=== PATIENT | female | born 1945 | race Caucasian/White ===

== ENCOUNTER 2016-12-23 08:14 | Outpatient (CLI) | payer MEDICARE, OTHER | END 2016-12-23 08:15 | disposition home or self-care (01) | DX: N28.9 Disorder of kidney and ureter, unspecified (principal); E78.5 Hyperlipidemia, unspecified; E03.9 Hypothyroidism, unspecified ==

== ENCOUNTER 2017-02-19 14:34 | Outpatient (CLI) | payer MEDICARE, OTHER ==
[2017-02-19] MEDS ORDERED: GADOBUTROL 7.5 MMOL/7.5 ML VIAL IVP ONE (15:56)
== END 2017-02-19 14:35 | disposition home or self-care (01) ==
DX: H53.9 Unspecified visual disturbance (principal); I10 Essential (primary) hypertension; J32.2 Chronic ethmoidal sinusitis; J32.0 Chronic maxillary sinusitis
CPT/HCPCS: 36415; 70543; 80048; A9585

== ENCOUNTER 2017-05-26 13:55 | Outpatient (CLI) | payer MEDICARE, OTHER ==
--- NOTE | 2017-05-27 13:19 | Mammography Report ---
DIGITAL SCREENING MAMMOGRAM: 05/26/2017 CLINICAL INDICATION: A 72-year-old nulliparous patient for screening. COMPARISON: 04/2014, 07/2012, 04/2011, 04/2010, 02/2009, 02/2008 TECHNIQUE: Routine CC and MLO projections were obtained of the breasts. FINDINGS: The breasts demonstrate scattered fibroglandular densities bilaterally. In the left likel y outer central breast, best seen on the oblique projection, there is a possible nodule. Further angelina luation with spot compression views and possible ultrasound is recommended. No mammographically susp icious findings are appreciated in the right breast. IMPRESSION: INCOMPLETE EXAMINATION. RECOMMENDATION: Additional evaluation of the left breast as above. BIRADS CATEGORY 0 - INCOMPLETE. STANDARD QUALIFYING STATEMENTS 1. This examination was reviewed with the aid of Computer-Aided Detection (CAD). 2. A negative or benign imaging report should not delay biopsy if clinically suspicious findings are present. Consider surgical consultation if warranted. More than 5% of cancers are not identified by i maging. 3. Dense breasts may obscure an underlying neoplasm. JOB #: [id number] EXT JOB #:[id number]
== END 2017-05-26 13:56 | disposition home or self-care (01) ==
LOC: DI.N 13:55
PROVIDERS: ATTEND Family Medicine
DX: Z12.31 Encounter for screening mammogram for malignant neoplasm of breast (principal); R92.8 Other abnormal and inconclusive findings on diagnostic imaging of breast
CPT/HCPCS: 77067

== ENCOUNTER 2017-06-07 13:39 | Outpatient (CLI) | payer MEDICARE, OTHER ==
--- NOTE | 2017-06-07 16:19 | Ultrasound Report ---
LEFT BREAST ULTRASOUND: 06/07/2017 CLINICAL INDICATION: Circumscribed nodule on mammogram. TECHNIQUE: Real-time scanning was performed with solar sales representative static images obtained. FINDINGS: Ultrasound of the left outer breast was performed. At the 3 o'clock position, 5 cm from t he nipple, there is a 0.5 x 0.4 x 0.3 cm simple cyst. No sonographically suspicious findings are dominic ntified. IMPRESSION: SIMPLE CYST, ACCOUNTING FOR THE MAMMOGRAPHIC ABNORMALITY. RECOMMENDATION: Routine annual screening unless otherwise clinically indicated. BIRADS CATEGORY 2 - BENIGN FINDINGS. JOB #: [id number] EXT JOB #:
--- NOTE | 2017-06-07 17:49 | Mammography Report ---
DIGITAL DIAGNOSTIC LEFT MAMMOGRAM: 06/07/2017 CLINICAL INDICATION: Possible nodule on screening. TECHNIQUE: Left true lateral and spot compression views. COMPARISON: 05/26/2017, 05/14/2014, 08/10/2012, 05/11/2011, 05/16/2010, 03/15/2009, 03/05/2008. The left breast again demonstrates scattered fibroglandular densities. The nodule in the left outer breast persists on additional compression, measuring 5 mm. No associated calcifications are seen. P karleease also refer to left breast ultrasound of the same day. IMPRESSION: BENIGN FINDINGS, WITH A SIMPLE CYST ON ULTRASOUND ACCOUNTING FOR THE MAMMOGRAPHIC ABNORM ALITY. RECOMMENDATION: ROUTINE ANNUAL SCREENING UNLESS OTHERWISE CLINICALLY INDICATED. BIRADS CATEGORY: 2, BENIGN FINDINGS. STANDARD QUALIFYING STATEMENTS 1. This examination was reviewed with the aid of Computed-Aided Detection (CAD). 2. A negative or benign imaging report should not delay biopsy if clinically suspicious findings are present. Consider surgical consultation if warranted. More than 5% of cancers are not identified b y imaging. 3. Dense breasts may obscure an underlying neoplasm. JOB #: [id number] EXT JOB #:[id number]
== END 2017-06-07 13:40 | disposition home or self-care (01) ==
LOC: DI 13:39
PROVIDERS: ATTEND Family Medicine
DX: N60.02 Solitary cyst of left breast (principal)
CPT/HCPCS: 76642; G0206

== ENCOUNTER 2017-07-19 09:50 | Outpatient (CLI) | payer MEDICARE, OTHER ==
[2017-07-19 12:37] LABS: BASOPHILS # (AUTO) 0.1 10^3/uL (0.0-0.1); EOSINOPHILS # (AUTO) 0.3 10^3/uL (0.0-0.7); EOSINOPHILS % (AUTO) 5.1 %; HCT - HEMATOCRIT 37.9 % (37.0-47.0); HGB - HEMOGLOBIN 12.6 g/dL (12.0-16.0); LYMPHOCYTES # (AUTO) 2.3 10^3/uL (1.5-3.5); LYMPHOCYTES % (AUTO) 34.8 %; MEAN CORPUSCULAR HEMOGLOBIN 28.7 pg (27.0-31.0); MEAN CORPUSCULAR HGB CONC 33.3 g/dL (32.0-36.0); MEAN CORPUSCULAR VOLUME 85.9 fL (81.0-99.0); MEAN PLATELET VOLUME 7.4 fL (7.9-10.8); MONOCYTES # (AUTO) 0.7 10^3/uL (0.0-1.0); MONOCYTES % (AUTO) 10.3 %; NEUTROPHILS # (AUTO) 3.3 10^3/uL (1.5-6.6); NEUTROPHILS % (AUTO) 48.8 %; RED BLOOD COUNT 4.41 10^6/uL (4.20-5.40); RED CELL DISTRIBUTION WIDTH 14.4 % (12.0-15.0); UNCORRECTED WHITE BLOOD COUNT 7.7 x10^3/uL; WHITE BLOOD COUNT 6.7 x10^3/uL (4.8-10.8)
[2017-07-19 13:09] LABS: ALBUMIN/GLOBULIN RATIO 1.1 (1.0-2.2); BILIRUBIN,TOTAL 0.4 mg/dL (0.2-1.0); BUN - BLOOD UREA NITROGEN 18 mg/dL (6-20); CALCIUM 9.5 mg/dL (8.5-10.3); CARBON DIOXIDE - CO2 28 mmol/L (21-32); CHLORIDE 102 mmol/L (101-111); CHOL/HDL RATIO 4.4 (<4.4); CHOLESTEROL 199 mg/dL; CREATININE 0.9 mg/dL (0.4-1.0); GFR - MDRD 61 (>89); GLUCOSE 88 mg/dL (70-100); HDL CHOLESTEROL 45 mg/dL; LDL/HDL RATIO 2.8 (<4.4); POTASSIUM 4.3 mmol/L (3.5-5.0); SODIUM 137 mmol/L (135-145); TOTAL PROTEIN 7.5 g/dL (6.7-8.2); TRIGLYCERIDES 147 mg/dL; VLDL CHOLESTEROL 29 mg/dL
[2017-07-19 13:31] LABS: PLATELET MORPHOLOGY PLATELET CLUMPING (NORMAL)
[2017-07-19 13:33] LABS: WBC MORPHOLOGY (MULTIPLE) NORMAL APPEARANCE (NORMAL)
== END 2017-07-19 09:51 | disposition home or self-care (01) ==
LOC: LAB.WCP 09:50
PROVIDERS: ATTEND Family Medicine
DX: I10 Essential (primary) hypertension (principal); E78.5 Hyperlipidemia, unspecified; E03.9 Hypothyroidism, unspecified
CPT/HCPCS: 36415; 80053; 80061; 84443; 85025

== ENCOUNTER 2017-09-03 16:31 | Outpatient (CLI) | payer MEDICARE, OTHER ==
--- NOTE | 2017-09-03 21:03 | MRI Report ---
EXAM: LEFT KNEE MRI WITHOUT CONTRAST EXAM DATE: 09/03/2017 04:45 PM. CLINICAL HISTORY: Left knee pain for 3 months. Medial pain. COMPARISON: 01/05/2013. TECHNIQUE: Multiplanar, multisequence T1-weighted and fluid-sensitive sequences of the knee without c ontrast. Other: None. FINDINGS: Bones: Small osteophytes in the intercondylar notch. No fracture or marrow edema.. Articular Cartilage: Grade 2-3 chondromalacia medial compartment. Grade 2 chondromalacia patellofemor al compartment. Grade 2 chondromalacia lateral compartment near intercondylar notch. Medial Meniscus: 1 cm horizontal cleavage tear meniscal body. Mild blunting free edge. Lateral Meniscus: 1 cm horizontal cleavage tear of the meniscal body. Cruciate Ligaments: The anterior and posterior cruciate ligaments are intact. Collateral Ligaments: Mild edema of the mid to distal MCL. No retraction. Lateral collateral ligament intact. Tendons: The quadriceps, patellar, semimembranosus, and popliteus tendons are unremarkable. Musculature: No edema or fatty atrophy. Other: Small joint effusion. Small popliteal fossa cyst No loose bodies. The medial and lateral reti nacula are intact. Mild subcutaneous edema. IMPRESSION: 1. 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 2. Small nondisplaced horizontal cleavage tears of the medial and lateral menisci. 3. Grade 1 MCL sprain. [facility] MUSCULOSKELETAL RADIOLOGY SECTION Referring Provider Line: [phone] SITE ID: [id number]
== END 2017-09-03 16:32 | disposition home or self-care (01) ==
LOC: DI 16:31
PROVIDERS: ATTEND Physician Assistant
DX: M17.0 Bilateral primary osteoarthritis of knee (principal); S83.282A Other tear of lateral meniscus, current injury, left knee, initial encounter; S83.242A Other tear of medial meniscus, current injury, left knee, initial encounter; M94.262 Chondromalacia, left knee; S83.412A Sprain of medial collateral ligament of left knee, initial encounter

== ENCOUNTER 2017-10-19 11:30 | Outpatient (CLI) | payer MEDICARE, OTHER | END 2017-10-19 11:31 | disposition home or self-care (01) | LOC: LAB.WCP 11:30 | PROVIDERS: ATTEND Family Medicine | DX: N39.0 Urinary tract infection, site not specified (principal) | CPT/HCPCS: 87077; 87086 ==

== ENCOUNTER 2018-02-01 08:00 | Outpatient (CLI) | payer MEDICARE, OTHER ==
[2018-02-01 19:25] LABS: CALCIUM 9.4 mg/dL (8.5-10.3)
== END 2018-02-01 08:01 | disposition home or self-care (01) ==
LOC: LAB.WCP 08:00
PROVIDERS: ATTEND Family Medicine
DX: D32.9 Benign neoplasm of meninges, unspecified (principal)
CPT/HCPCS: 36415; 80048

== ENCOUNTER 2018-02-11 13:36 | Outpatient (CLI) | payer MEDICARE, OTHER ==
[2018-02-11] MEDS ORDERED: GADOBUTROL 7.5 MMOL/7.5 ML VIAL ONE (13:39)
[2018-02-11] MEDS ORDERED: GADOBUTROL 7.5 MMOL/7.5 ML VIAL IVP ONE (14:29)
--- NOTE | 2018-02-11 16:11 | MRI Report ---
EXAM: MRI BRAIN WITHOUT AND WITH CONTRAST EXAM DATE: 02/11/2018 02:33 PM. CLINICAL HISTORY: Meningioma. COMPARISON: MRI of the brain and orbits 02/19/2017. MRI of the brain 09/27/2014. TECHNIQUE: Multiplanar, multisequence T1-weighted and fluid-sensitive MR sequences of the brain were performed. Sequences optimized for routine evaluation. Other: None. IV Contrast: 4 cc Gadavist. FINDINGS: Brain Volume: Normal for age. Parenchyma: No acute hemorrhage, mass, or infarct. Mild scattered foci of T2/FLAIR bright white matte r signal are seen in the cerebral hemispheres and brainstem. No cortical signal abnormality. No abnor mal enhancement. Ventricles/Cisterns: An extra-axial avidly enhancing dural based soft tissue mass is once again seen in the floor of the anterior cranial fossa. This is in the midline and slightly greater to the left o f midline at the junction of the planum sphenoidale and olfactory sulcus at the inferior falx. This m easures 7 x 9 x 9 mm (previously 7 x 8 x 8 mm). No hydrocephalus. No abnormal extra-axial fluid colle ction or hemorrhage. Orbits: Symmetric and unremarkable. Note is made of bilateral lens removal. Sella Turcica: The pituitary gland, cavernous sinuses, suprasellar cistern and optic chiasm are unrem arkable. IAC: Symmetric and unremarkable. Vasculature: Normal signal flow void is seen in the major arterial structures at the skull base. The dural sinuses are patent and enhance normally. Sinuses: Mild polypoid mucosal thickening is seen inferiorly in the maxillary antra. The mastoid air cells are clear. Bones: No focal pathologic appearing marrow signal changes. Other: None. IMPRESSION: 1. Small avidly enhancing extra-axial dural based mass seen in the midline floor of the anterior cran ial fossa consistent with meningioma. This measures 7 x 9 x 9 mm, not significantly changed. 2. No acute intracranial abnormality. 3. Mild white matter T2/FLAIR bright signal change noted in the cerebral hemispheres. This is nonspec ific but typically secondary to small vessel ischemic change. [facility] Referring Provider Line: [phone] SITE ID: [id number]
== END 2018-02-11 13:37 | disposition home or self-care (01) ==
LOC: DI 13:36
PROVIDERS: ATTEND Family Medicine
DX: D32.9 Benign neoplasm of meninges, unspecified (principal)
CPT/HCPCS: 70553; A9585

== ENCOUNTER 2018-05-23 08:00 | Outpatient (CLI) | END 2018-05-23 08:01 | disposition home or self-care (01) ==

== ENCOUNTER 2018-06-08 08:00 | Outpatient (CLI) | payer MEDICARE, OTHER ==
[2018-06-08 13:24] LABS: BASOPHILS % (AUTO) 0.8 %; EOSINOPHILS # (AUTO) 0.4 10^3/uL (0.0-0.7); EOSINOPHILS % (AUTO) 5.7 %; HGB - HEMOGLOBIN 13.2 g/dL (12.0-16.0); LYMPHOCYTES # (AUTO) 2.3 10^3/uL (1.5-3.5); LYMPHOCYTES % (AUTO) 34.2 %; MEAN CORPUSCULAR HEMOGLOBIN 28.6 pg (27.0-31.0); MEAN CORPUSCULAR HGB CONC 33.2 g/dL (32.0-36.0); MEAN CORPUSCULAR VOLUME 86.2 fL (81.0-99.0); MEAN PLATELET VOLUME 7.7 fL (7.9-10.8); MONOCYTES # (AUTO) 0.6 10^3/uL (0.0-1.0); MONOCYTES % (AUTO) 9.5 %; NEUTROPHILS # (AUTO) 3.3 10^3/uL (1.5-6.6); NEUTROPHILS % (AUTO) 49.8 %; RED BLOOD COUNT 4.63 10^6/uL (4.20-5.40); RED CELL DISTRIBUTION WIDTH 13.8 % (12.0-15.0); WHITE BLOOD COUNT 6.6 x10^3/uL (4.8-10.8)
[2018-06-08 14:04] LABS: PLATELET ESTIMATE, MANUAL NORMAL (130-450,000) (NORMAL); PLATELET MORPHOLOGY PLATELET CLUMPING (NORMAL); RBC MORPHOLOGY (MULTIPLE) NORMAL APPEARANCE (NORMAL)
== END 2018-06-08 08:01 | disposition home or self-care (01) ==
LOC: LAB.WCP 08:00
PROVIDERS: ATTEND Family Medicine
DX: I10 Essential (primary) hypertension (principal)
CPT/HCPCS: 36415; 85025

== ENCOUNTER 2018-08-08 09:45 | Outpatient (CLI) | payer MEDICARE, OTHER ==
[2018-08-08] MEDS ORDERED: IOPAMIDOL-300 50 ML VIAL ONE (10:24)
[2018-08-08] MEDS ORDERED: IOPAMIDOL-300 100 ML VIAL ONE (10:24)
[2018-08-08 10:25] LABS: CALCIUM 9.4 mg/dL (8.5-10.3)
[2018-08-08] MEDS ORDERED: IOPAMIDOL-300 50 ML VIAL PO ONE (11:35)
[2018-08-08] MEDS ORDERED: IOPAMIDOL-300 100 ML VIAL IVP ONE (11:35)
--- NOTE | 2018-08-08 11:56 | CT Report ---
Reason: ABDOMINAL PAIN,LEFT LOWER QUADRANT Procedure Date: 08/08/2018 Accession Number: [id number] / [id number] Procedure: CT - Abdomen/Pelvis W/ CPT Code: FULL RESULT: EXAM: CT ABDOMEN AND PELVIS EXAM DATE: 08/08/2018 11:31 AM. CLINICAL HISTORY: Left lower quadrant abdominal pain. COMPARISONS: None. TECHNIQUE: Routine helical CT imaging was performed through the abdomen and pelvis. IV contrast: ISOVUE 300 100mL. Enteric contrast: Yes. Reconstructions: Coronal and sagittal. In accordance with CT protocol optimization, one or more of the following dose reduction techniques were utilized for this exam: automated exposure control, adjustment of mA and/or KV based on patient size, or use of iterative reconstructive technique. FINDINGS: Lung Bases: Clear. Liver: Normal. No focal hepatic lesion. Gallbladder/Bile Ducts: Unremarkable. No visualized stones or biliary ductal dilatation. Spleen: Normal. Pancreas: Normal. Adrenal Glands: Normal. Kidneys and Ureters: 3.1 cm cortical cyst in the right upper pole. Several scattered subcentimeter round hypoattenuating foci elsewhere in the bilateral renal cortices are too small to definitively characterize but likely also represent cysts. No stones, hydronephrosis, or hydroureter. Peritoneal Cavity/Bowel: Diverticulosis in the mid transverse colon and in the sigmoid colon. No focal colon wall thickening or adjacent mesenteric fat stranding to suggest acute diverticulitis. No evidence for bowel obstruction or acute inflammatory process elsewhere. The appendix is not seen. No free fluid, pneumoperitoneum, or adenopathy. Pelvic Organs: Post hysterectomy. The bladder is within normal limits. Vasculature: Trace atherosclerotic calcifications within the aorta. Bones: Mild left convex curvature centered at L2-L3. Multilevel degenerative disk disease, most pronounced and moderate to severe at L1-L2. No acute bony abnormality. Other: Tiny fat-containing umbilical hernia. IMPRESSION: 1. No acute inflammatory or obstructive process identified to explain left lower quadrant abdominal pain. 2. Colonic diverticulosis without CT evidence for acute diverticulitis. [facility]
== END 2018-08-08 09:46 | disposition home or self-care (01) ==
LOC: LAB 09:45 → DI 09:46
PROVIDERS: ATTEND Family Medicine
DX: R10.32 Left lower quadrant pain (principal); K57.30 Diverticulosis of large intestine without perforation or abscess without bleeding
CPT/HCPCS: 36415; 74177; 80048; Q9967

== ENCOUNTER 2018-08-11 10:39 | Outpatient (CLI) | payer MEDICARE, OTHER ==
--- NOTE | 2018-08-11 15:03 | Ultrasound Report ---
Reason: LT BREAST CYST, PAIN Procedure Date: 08/11/2018 Accession Number: [id number] / [id number] Procedure: US - Breast Unilateral Limited CPT Code: FULL RESULT: EXAM: Breast bilateral diagnostic mammogram and left breast ultrasound DATE: 08/11/2018 11:39 AM CLINICAL HISTORY: LT BREAST CYST, PAIN TECHNIQUE: Bilateral MLO and CC breast views. Sonographic evaluation of the left breast 3:00. COMPARISON: Mammogram 05/26/2017 FINDINGS: No mass or other mammographic abnormality is seen at the area of concern. Left breast 3:00. No architectural distortion or concerning cluster of macrocalcifications. Sonographic evaluation of the left breast 3:00 position 5 cm from the nipple demonstrates a 4 mm simple appearing cyst, consistent with prior imaging. IMPRESSION: Essentially stable 4 mm simple-appearing left breast cyst. BI-RADS 2. Benign finding. Recommend annual screening mammography unless otherwise clinically indicated.
== END 2018-08-11 10:40 | disposition home or self-care (01) ==
LOC: DI 10:39
PROVIDERS: ATTEND Family Medicine
DX: N60.02 Solitary cyst of left breast (principal)
CPT/HCPCS: 76642; 77066

== ENCOUNTER 2018-08-26 12:41 | Outpatient (CLI) | payer MEDICARE, OTHER ==
--- NOTE | 2018-08-29 08:49 | Ultrasound Report ---
Reason: RENAL CYCSTS, BILATERAL Procedure Date: 08/26/2018 Accession Number: [id number] / [id number] Procedure: US - Retroperitoneal CPT Code: FULL RESULT: EXAM: RENAL ULTRASOUND EXAM DATE: 08/26/2018 01:37 PM. CLINICAL HISTORY: Renal cysts, bilateral. COMPARISON: None. TECHNIQUE: Real-time scanning was performed with static images obtained. FINDINGS: Right Kidney: 10.2 x 4.5 x 4.1 cm. 2.8 x 2.3 x 2.6 cm simple right upper renal cyst. No concerning features. No stones or hydronephrosis or mass. Left Kidney: 11.4 x 4.5 x 4.2 cm. Normal echotexture with no stones, contour-deforming masses, or hydronephrosis. Bladder: Bilateral jets seen. The prevoid bladder volume was 407.2 cc. The postvoid bladder volume was 14.3 cc. Other: None. IMPRESSION: 1. No renal mass, stones or hydronephrosis. 2. 2.8 cm simple right upper renal cyst. No concerning features. 3. Normal bladder. [facility]
== END 2018-08-26 12:42 | disposition home or self-care (01) ==
LOC: DI 12:41
PROVIDERS: ATTEND Family Medicine
DX: N28.1 Cyst of kidney, acquired (principal)
CPT/HCPCS: 76770

== ENCOUNTER 2018-09-30 11:02 | Outpatient (CLI) | payer MEDICARE, OTHER | END 2018-09-30 11:03 | disposition home or self-care (01) | LOC: DI 11:02 | PROVIDERS: ATTEND Specialist | DX: E78.5 Hyperlipidemia, unspecified (principal); I10 Essential (primary) hypertension; R06.02 Shortness of breath | CPT/HCPCS: 93306 ==

== ENCOUNTER 2018-10-28 11:49 | Outpatient (CLI) | payer MEDICARE, OTHER ==
--- NOTE | 2018-10-28 12:26 | XRAY Report ---
Reason: SHORT OF BREATH ON EXERTION Procedure Date: 10/28/2018 Accession Number: [id number] / [id number] Procedure: XRN - Chest 2 View X-Ray CPT Code: 07304 FULL RESULT: EXAM: CHEST RADIOGRAPHY EXAM DATE: 10/28/2018 12:08 PM. CLINICAL HISTORY: Short of breath on exertion. COMPARISON: 01/31/2015 4:54 PM. TECHNIQUE: 2 views. FINDINGS: Subtle increasing right middle lobe opacity. Lateral radiograph demonstrates an appearance most suggestive of atelectasis. No lobar consolidation. No sizable pleural effusion or pneumothorax. Mediastinum: Heart and mediastinal contours are unremarkable. Other: None. IMPRESSION: Subtle right middle lobe opacity, atelectasis versus sublobar airspace disease. [facility]
== END 2018-10-28 11:50 | disposition home or self-care (01) ==
LOC: DI.N 11:49
PROVIDERS: ATTEND Specialist
DX: R06.02 Shortness of breath (principal); R91.8 Other nonspecific abnormal finding of lung field
CPT/HCPCS: 71046

== ENCOUNTER 2018-11-14 12:50 | Outpatient (CLI) | payer MEDICARE, OTHER | END 2018-11-14 12:51 | disposition home or self-care (01) | LOC: SC 12:50 | PROVIDERS: ATTEND Internal Medicine Pulmonary Disease | DX: G47.33 Obstructive sleep apnea (adult) (pediatric) (principal) | CPT/HCPCS: 99203; G0463; 99212 ==

== ENCOUNTER 2018-12-16 16:30 | Outpatient (CLI) | payer MEDICARE, OTHER | END 2018-12-16 23:59 | disposition home or self-care (01) | LOC: LAB.R 16:30 | PROVIDERS: ATTEND Family Medicine | DX: R30.0 Dysuria (principal) | CPT/HCPCS: 87086 ==

== ENCOUNTER 2019-02-14 12:54 | Outpatient (CLI) | payer MEDICARE, OTHER ==
[2019-02-14] MEDS ORDERED: GADOBUTROL 7.5 MMOL/7.5 ML VIAL ONE (13:53)
[2019-02-14] MEDS ORDERED: GADOBUTROL 7.5 MMOL/7.5 ML VIAL IVP ONE ×2 (14:32)
--- NOTE | 2019-02-15 13:11 | MRI Report ---
Reason: BENIGN NEOPLASM OF CEREBRAL MENINGES Procedure Date: 02/14/2019 Accession Number: [id number] / [id number] Procedure: MRI - Brain W/WO CPT Code: FULL RESULT: MRI BRAIN WITHOUT AND WITH CONTRAST INDICATION: 73-year-old female. Benign neoplasm of cerebral meninges. Please assess in followup. TECHNIQUE: 1. T1 sagittal. 2. Fat saturated T2 coronal. 3. Axial T1 MP RAGE, FLAIR, T2, T2* and DWI. 4. 6 cc of IV Gadavist. T1 3D axial with sagittal and coronal re-formations. COMPARISON: 02/11/2018. FINDINGS: Again demonstrated is a robustly enhancing extra-axial mass lesion in the midline inferior anterior cranial fossa. On today's examination, it appears to measure about 11 mm maximal AP (image 66 of series 1001) by 10 mm maximal transverse by 8 mm maximal craniocaudad, slightly increased from about 9 x 9 x 8 mm on the previous examination. There is minor mass effect on adjacent brain. No additional enhancing extra-axial or intra-axial mass lesion is demonstrated. Again demonstrated is normal intravascular contrast enhancement in the dural venous sinuses and deep venous structures. Ventricular size is normal and stable. A mild amount of white matter disease is again identified in the supratentorial brain, similar to prior study. A small T2 hyperintensity is again seen in the midline mid to lower bryan. In addition, there is hazy T2 hyperintensity bilaterally in the upper bryan bilaterally, essentially unchanged. Signal intensity of cortex and white matter is otherwise normal. Flow voids are demonstrated in the main intracranial arteries. No abnormal diffusion restriction is demonstrated. No evidence of acute or chronic hemorrhage on T2*GRE sequence. Limited evaluation of the orbits reveals no gross pathology. Changes of previous cataract surgery are noted bilaterally. Mucosal thickening is seen in multiple ethmoid air cells. There is mucosal thickening in bilateral maxillary sinuses with a mucous retention cyst in the alveolar recess of the right maxillary sinus. The paranasal sinuses are otherwise clear. No mastoid or middle ear effusion. Marrow signal intensity in the regional skeletal structures is unremarkable. IMPRESSION: 1. Again demonstrated is a small, robustly enhancing intra-axial mass lesion in the midline floor of the anterior cranial fossa as described, most likely a meningioma. There appears to have been very mild interval increase in AP and transverse dimensions when compared to study from last January suggesting a minor interval growth. 2. Imaging of the brain is otherwise stable.
== END 2019-02-14 12:55 | disposition home or self-care (01) ==
LOC: DI 12:54
PROVIDERS: ATTEND Family Medicine
DX: D32.0 Benign neoplasm of cerebral meninges (principal)
CPT/HCPCS: 70553; A9585

== ENCOUNTER 2019-04-04 12:47 | Outpatient (CLI) | payer MEDICARE, OTHER | END 2019-04-04 12:48 | disposition home or self-care (01) | LOC: SC 12:47 | PROVIDERS: ATTEND Nurse Practitioner Family | DX: G47.33 Obstructive sleep apnea (adult) (pediatric) (principal) | CPT/HCPCS: 99215; G0463; 99212 ==

== ENCOUNTER 2019-06-28 09:45 | Outpatient (CLI) | payer MEDICARE, OTHER ==
[2019-06-28 12:48] LABS: BASOPHILS % (AUTO) 0.5 %; EOSINOPHILS # (AUTO) 0.3 10^3/uL (0.0-0.7); EOSINOPHILS % (AUTO) 4.7 %; HGB - HEMOGLOBIN 13.7 g/dL (12.0-16.0); LYMPHOCYTES # (AUTO) 1.7 10^3/uL (1.5-3.5); MEAN CORPUSCULAR HEMOGLOBIN 27.6 pg (27.0-31.0); MEAN CORPUSCULAR HGB CONC 31.1 g/dL (32.0-36.0); MEAN CORPUSCULAR VOLUME 88.9 fL (81.0-99.0); MEAN PLATELET VOLUME 10.8 fL (7.9-10.8); MONOCYTES # (AUTO) 0.6 10^3/uL (0.0-1.0); MONOCYTES % (AUTO) 10.1 %; NEUTROPHILS # (AUTO) 3.2 10^3/uL (1.5-6.6); NEUTROPHILS % (AUTO) 55.5 %; PLT - PLATELET COUNT 65 10^3/uL (130-450); RED BLOOD COUNT 4.96 10^6/uL (4.20-5.40); WHITE BLOOD COUNT 5.8 x10^3/uL (4.8-10.8)
[2019-06-28 13:18] LABS: ALBUMIN 3.9 g/dL (3.2-5.5); ALKALINE PHOSPHATASE 95 IU/L (42-121); ALT ALANINE AMINOTRANSFERASE 23 IU/L (10-60); AST ASPARTATE AMINOTRANSFERASE 25 IU/L (10-42); BILIRUBIN,TOTAL 0.7 mg/dL (0.2-1.0); BUN - BLOOD UREA NITROGEN 24 mg/dL (6-20); CALCIUM 9.6 mg/dL (8.5-10.3); CARBON DIOXIDE - CO2 27 mmol/L (21-32); CHLORIDE 102 mmol/L (101-111); CHOL/HDL RATIO 5.2 (<4.4); CHOLESTEROL 219 mg/dL; CREATININE 0.9 mg/dL (0.4-1.0); GFR - MDRD 61 (>89); GLUCOSE 93 mg/dL (70-100); HDL CHOLESTEROL 42 mg/dL; LDL CHOLESTEROL,CALCULATED 132 mg/dL; LDL/HDL RATIO 3.1 (<4.4); SODIUM 139 mmol/L (135-145); TOTAL PROTEIN 7.7 g/dL (6.7-8.2); VLDL CHOLESTEROL 45 mg/dL
[2019-06-28 13:39] LABS: HB2 TOTAL 14.3 g/dL; HEMOGLOBIN A1C 0.57 g/dL; HEMOGLOBIN A1C % 5.8 % (4.6-6.2)
== END 2019-06-28 23:59 | disposition home or self-care (01) ==
LOC: LAB.WCP 09:45
PROVIDERS: ATTEND Family Medicine
DX: E78.5 Hyperlipidemia, unspecified (principal); E03.9 Hypothyroidism, unspecified; R79.89 Other specified abnormal findings of blood chemistry; R73.01 Impaired fasting glucose; M85.89 Other specified disorders of bone density and structure, multiple sites
CPT/HCPCS: 36415; 80053; 80061; 83036; 83721; 84443; 85025

== ENCOUNTER 2019-08-29 11:11 | Outpatient (CLI) | payer MEDICARE, OTHER ==
[2019-08-29 12:28] VITALS: BP 112/70
--- NOTE | 2019-08-29 12:28 | SLEEP CARE CONSULTATION ---
Information from patient questionnaire entered by Kirsten Carvalho. I have reviewed and concur with the information entered by Kirsten Carvalho. This document represents the service I personally performed and the decisions made by me, Carli Desouza, RN, MSN, PIGMENT [employer]. History of Present Illness Previous diagnosis: Mild, Obstructive Sleep Apnea-Hypopnea Syndrome AHI: 9.2 Reason for CPAP/BiPAP follow up: three month (and pressure change) Equipment type: CPAP Equipment obtained from: [facility] (having difficulty getting supplies despite statements will be ready and rude treatment by CPAP staff on phone.) Mask style: Nasal (Dreamwear) Mask brand: Respironics Backup mask available: No (Keep current mask when replaced as a spare. ) Last cushion change: last night Prior sleep studies: Yes Year and Where: 2006 [facility], [place] CPAP Compliance Data - Data Reviewed with Patient Average duration of nightly device use: 7h 43m Compliance rate %: 97.8 Current pressure setting (cmH2O): 9 Humidity settin Heated hose settin Average residual AHI: 1.7 Subjective Patient concerns: reports: mask leak noise (2-3 times a night from mask dislodging ), nasal congestion (daily and when increased will open mouth to breath), dry mouth, nose, throat (nightly, mainly nose and throat), epistaxis (she notes dried red secretions when blows nose daily), other (sinus frontal headache more frequently lately. ). denies: aerophagia, mask discomfort, air blowing in eyes, condensation in mask/hose Initial [place] Sleepiness Scale score: 6 Current [place] Sleepiness Scale score: 10 Allergies and Home Medications Known drug allergies: Yes (multiple as noted below) Home medication list reviewed: Yes Allergy and home medication list: Medication Name (generic/name brand) Strength & Dosage Lipitor (Atorvastatin Calcium) 20mg tab one daily at bedtime Levoxyl (Levothyroxine Sodium) 88mcg tab one daily Wbhex-S-Odlbp 0.1% External Gel Apply to area twice daily Patanol 0.1% Ophthalmic Solution One drop each eye twice daily as needed Buspirone HCL 15mg tab two twice daily ProAir HFA 108 (90 base) mcg/act aerosol Two puffs up to q4hrs as needed Advair Diskus 100-50 mcg/dose aerosol One inhalation twice daily Lisinopril 2.5mg tab daily Zyrtec Allergy 10mg tab one daily Aspirin EC 81mg tab delayed release one daily Allergy List Penicillin G Potassium Sulfa Iodine IVP Dye Cocaine HCL Codeine Erythromycin Shellfish Physical Exam Blood Pressure: 112/70 Cuff size: long Heart Rate: 72 O2 Saturation: 96 Weight: 158 lb Weight change since last visit: lost 10 pounds on purpose Nasal exam: positive: erythema, excoriation (septum mild) Impression and Plan 1. Obstructive Sleep Apnea-Hypopnea Syndrome, mild, with good treatment compliance and good apnea control. On CPAP therapy, the patient has better sleep quality and is more rested overall. For nasal dryness and scant blood on tissue when blows nose, I showed her on a sample device and her compliance report that she had increased hose to 5 and humindity to 1 instead of opposite as advised. Written instructions given to now try the heated off unless condensation and the humidity at 3 and adjust as needed. In addition, I will give her some more samples of Andrea EAse nasal cream as it seemed to help. However, due to her busy schedule she was not able to use 4 times daily. Thus she is advised to try 2 times a day for 7-10 days to allow healing and then as needed. She may benefit from daily use thereafter before CPAP use. If continued frontal headache after humidity adjusted, she is advised to follow up with PCP and agreed with plan. To prevent mask dislodging in her sleep nightly, I will order the new headgear attachment to reduce this occurrence. For her supply concerns, I wrote a prescription to update supplies. There is no recent supply requisition from [facility] signed since 2016. This could be part of patient problem in getting supplies but [facility] just needs to send us this for signature as patient has been seen as needed for follow up. I will start process with a prescription to update supplies. She would like to transfer to new [facility] but generally a patient needs to wait until the device is paid for by insurance. Thus I will have my missionary coordinator check out. A [facility] prescription will also have to be written. Patient advised to contact this office if any further problems. She is on way to [facility] now to try to speak to international sourcing manager about her concerns with supplies and staff behaviour on phone. Patient's apnea severity and rationale for treatment to reduce apnea, improve sleep quality and reduce cardiovascular and cerebrovascular events was reviewed. I also reviewed the benefit of consistent device use of CPAP for hypertension, gastric reflux, depression/anxiety, migraines. 4 * Continue CPAP pressure at 9 cmH2O * Implement measures to reduce nasal dryness * Headgear attachment * Update supplies * Contact this office if further supply concerns * Notify me if snoring with mask or feeling that the pressure is too much or too little * Return for follow up in 1 year , or sooner if concerns arise I spent 100% of this 35 minute visit face to face with the patient with greater than 50% of this was spent time counseling the patient and coordination of care.
== END 2019-08-29 11:12 | disposition home or self-care (01) ==
LOC: SC 11:11
PROVIDERS: ATTEND Nurse Practitioner Family
DX: G47.33 Obstructive sleep apnea (adult) (pediatric) (principal)
CPT/HCPCS: 99214; G0463; 99212

== ENCOUNTER 2019-09-05 15:48 | Outpatient (CLI) | payer MEDICARE, OTHER ==
--- NOTE | 2019-09-06 12:09 | Mammography Report ---
Reason: ROUTINE MAMMO Procedure Date: 09/05/2019 Accession Number: [id number] / [id number] Procedure: [facility] - Screening Mammo w/Jake CPT Code: FULL RESULT: EXAM: Screening Mammo w/Jake DATE: 09/05/2019 4:39 PM CLINICAL HISTORY: Routine screening. No reported personal or family history of breast cancer. TECHNIQUE: (B) - Bilateral CC and MLO views were obtained. COMPARISON: 08/11/2018 through 05/16/2010. PARENCHYMAL PATTERN: (A) - The breasts demonstrate scattered fibroglandular densities bilaterally. FINDINGS: Bilateral breasts: There are multiple bilateral, similar appearing, round and oval, circumscribed margin benign-appearing masses, stable. There are no suspicious masses, calcifications, or areas of distortion. IMPRESSION: Benign findings. BI-RADS category 2. RECOMMENDATION: (ANNUAL) - Recommend routine annual screening mammography. BI-RADS CATEGORY: (2) - Benign Findings. STANDARD QUALIFYING STATEMENTS: 1. This examination was not reviewed with the aid of Computer-Aided Detection (CAD). 2. A negative or benign imaging report should not preclude biopsy if clinically suspicious findings are present. 3. Dense breasts may obscure an underlying neoplasm. 4. This examination was reviewed with the aid of 3D breast imaging (tomosynthesis).
== END 2019-09-05 15:49 | disposition home or self-care (01) ==
LOC: DI 15:48
DX: Z12.31 Encounter for screening mammogram for malignant neoplasm of breast (principal)
CPT/HCPCS: 77063; 77067

== ENCOUNTER 2020-05-07 15:01 | Outpatient (CLI) | payer MEDICARE, OTHER ==
[2020-05-07 15:30] LABS: BASOPHILS % (AUTO) 0.5 %; EOSINOPHILS # (AUTO) 0.4 10^3/uL (0.0-0.7); EOSINOPHILS % (AUTO) 5.4 %; HGB - HEMOGLOBIN 13.8 g/dL (12.0-16.0); LYMPHOCYTES # (AUTO) 2.3 10^3/uL (1.5-3.5); LYMPHOCYTES % (AUTO) 30.3 %; MEAN CORPUSCULAR HEMOGLOBIN 28.3 pg (27.0-31.0); MEAN CORPUSCULAR HGB CONC 31.4 g/dL (32.0-36.0); MEAN CORPUSCULAR VOLUME 90.1 fL (81.0-99.0); MEAN PLATELET VOLUME 10.2 fL (7.9-10.8); MONOCYTES # (AUTO) 0.8 10^3/uL (0.0-1.0); MONOCYTES % (AUTO) 10.2 %; NEUTROPHILS % (AUTO) 53.3 %; PLT - PLATELET COUNT 242 10^3/uL (130-450); RED BLOOD COUNT 4.87 10^6/uL (4.20-5.40); RED CELL DISTRIBUTION WIDTH 13.3 % (12.0-15.0); WHITE BLOOD COUNT 7.4 x10^3/uL (4.8-10.8)
[2020-05-07 15:47] LABS: ALBUMIN 4.1 g/dL (3.2-5.5); ALBUMIN/GLOBULIN RATIO 1.1 (1.0-2.2); BILIRUBIN,TOTAL 0.3 mg/dL (0.2-1.0); CALCIUM 9.3 mg/dL (8.5-10.3); CREATININE 0.9 mg/dL (0.4-1.0); TOTAL PROTEIN 7.8 g/dL (6.7-8.2)
--- NOTE | 2020-05-07 16:09 | CT Report ---
Reason: RIGHT FLANK PAIN Procedure Date: 05/07/2020 Accession Number: [id number] / [id number] Procedure: CT - Abdomen/Pelvis WO CPT Code: Final Report FULL RESULT: PROCEDURE: Abdomen/Pelvis WO INDICATIONS: RIGHT FLANK PAIN TECHNIQUE: Noncontrast 5 mm thick sections acquired from the diaphragms to the symphysis. 5 mm coronal and sagittal reformats were then performed. For radiation dose reduction, the following was used: automated exposure control, adjustment of mA and/or kV according to patient size. COMPARISON: CT of abdomen and pelvis dated 08/08/2018. FINDINGS: Image quality: Excellent. ABDOMEN: Lung bases: Lung bases are clear. Heart size is normal. Solid organs: Liver and spleen are normal in size. Gallbladder is within normal limits Pancreas is normal in contours. No adrenal nodules. Kidneys are normal in size, without hydronephrosis or nephrolithiasis. Bilateral renal cysts are seen, measures up to 3.1 x 3.5 cm in size in upper pole of right kidney unchanged from previous study. There is also a 9 mm hyperdense and exophytic area involving posterior cortex of lower pole right kidney which was shown on previous contrast enhanced study to represent a small cyst in this area and may represent a hemorrhagic cyst or hyperdense cyst. Peritoneum and bowel: Unenhanced bowel loops demonstrate normal wall thickness and caliber. No free fluid or air. Sigmoid diverticulosis is seen, no CT evidence of acute diverticulitis. No signs of acute appendicitis. Nodes and vessels: No retroperitoneal or mesenteric adenopathy by size criteria. Aorta and inferior vena cava are normal in caliber. Miscellaneous: Small focal hernia is seen containing fat only. Separate skin marker is placed over the right lateral abdomen below the lower edge of liver. No gross abnormality is noted in adjacent right abdominal wall. PELVIS: Genitourinary: Bladder wall thickness is normal. Miscellaneous: No inguinal hernias or adenopathy. Bones: No suspicious bony lesions. Chronic anterior wedge compression deformity at T12 level is seen unchanged from prior study. No acute vertebral body compression fractures. IMPRESSION: 1. No renal stones or hydronephrosis. Suggestion of bilateral renal cysts including possible 9 mm hyperdense cyst or hemorrhagic cyst in lower pole of right kidney grossly unchanged from 2018 study. 2. No bowel obstruction. No free fluid or free air. No evidence of acute appendicitis or diverticulitis. 3. Small umbilical hernia containing fat only. No soft tissue or muscle abnormality is seen in right lateral abdominal wall at patient's reported area of pain. Reviewed by: Markus Hernandez MD on 05/07/2020 4:07 PM PDT Approved by: Markus Hernandez MD on 05/07/2020 4:07 PM PDT Station ID: [id number]
== END 2020-05-07 15:02 | disposition home or self-care (01) ==
LOC: DI 15:01
PROVIDERS: ATTEND Family Medicine
DX: R10.9 Unspecified abdominal pain (principal); K42.9 Umbilical hernia without obstruction or gangrene
CPT/HCPCS: 36415; 74176; 80053; 83690; 85025

== ENCOUNTER 2020-08-02 02:39 | Emergency (ER) | payer MEDICARE, OTHER ==
--- NOTE | 2020-08-02 02:55 | ED Physician Documentation ---
PD HPI HEADACHE - Stated complaint Stated Complaint: LUBIN/VOMITING - Chief complaint Chief Complaint: General - History obtained from History obtained from: Patient - History of Present Illness Timing - onset: Enter time (18:00) Timing - details: Gradual onset Pain level now: 10 Worst headache ever?: No: Worst headache ever? Location: Right Improved by: Dark room Worsened by: Light Similar symptoms before: Diagnosis (migraine headache) Recently seen: Not recently seen - Additional information Additional information: c/o right-sided headache since 6 PM, c/w her long history of migraine headaches. she is usually able to get adequate symptom control with excedrin and rest but this was ineffective and thus comes to ED with headache, n/v. has not been seen in ED for headache in 5 years. Review of Systems Constitutional: reports: Reviewed and negative Eyes: reports: Photophobia. denies: Loss of vision, Decreased vision Ears: reports: Reviewed and negative Nose: reports: Reviewed and negative GI: reports: Nausea, Vomiting. denies: Abdominal Pain Neurologic: reports: Headache. 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 - Present Medications Home Medications: Ambulatory Orders Medication Instructions Recorded Confirmed Buspirone HCl 15 mg PO BID 08/13/14 08/31/18 Cetirizine HCl [Zyrtec] 10 mg PO DAILY 08/13/14 08/31/18 Aripiprazole [Abilify] 1 tab PO DAILY 08/31/18 08/31/18 Atorvastatin [Lipitor] 1 tab PO DAILY 08/31/18 08/31/18 Desvenlafaxine Succinate [Pristiq] 1 tab PO DAILY 08/31/18 08/31/18 Levothyroxine Sodium [Synthroid] 1 tab PO DAILY 08/31/18 08/31/18 lisinopriL [Lisinopril] 1 tab PO DAILY 08/31/18 08/31/18 Ondansetron Odt [Zofran] 4 mg TL Q6H PRN #10 tablet 08/02/20 - Allergies Allergies/Adverse Reactions: Allergies Allergy/AdvReac Type Severity Reaction Status Date / Time codeine Allergy Hallucinati Verified 08/02/20 02:48 ons cocaine AdvReac Unknown Verified 08/02/20 02:48 - Social History Does the pt smoke?: No Smoking Status: Never smoker Does the pt drink ETOH?: No Does the pt have substance abuse?: No - Immunizations Immunizations are current?: Yes - POLST Patient has POLST: No PD ED PE NORMAL - Vitals Vital signs reviewed: Yes - General General: Alert and oriented X 3, Well developed/nourished, Other (appears uncomfortable, lights off for patient comfort, has washcloth over eyes) - HEENT HEENT: PERRL, EOMI, Moist mucous membranes - Neck Neck: Supple, no meningeal sign - Neuro Neuro: Alert and oriented X 3, 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 Departure - Departure Disposition: 01 Home, Self Care Clinical Impression: Migraine Qualifiers: Migraine type: with aura Status migrainosus presence: without status migrainosus Intractability: not intractable Qualified Code(s): G43.109 - Migraine with aura, not intractable, without status migrainosus Condition: Good Instructions: ED Headache Migraine Follow-Up: Jose G Gasca DO [Primary Care Provider] - Prescriptions: Ondansetron Odt [Zofran] 4 mg TL Q6H PRN #10 tablet PRN Reason: Nausea / Vomiting Discharge Date/Time: 08/02/20 04:17
[2020-08-02] MEDS ORDERED: SODIUM CHLORIDE 0.9% 1,000 ML IV STA (03:15)
[2020-08-02] MEDS ORDERED: ONDANSETRON 4 MG/2 ML VIAL IVP STA (03:19)
[2020-08-02] MEDS ORDERED: KETOROLAC 30 MG/ML VIAL IVP STA (03:19)
[2020-08-02 04:18] VITALS: BP 126/76
== END 2020-08-02 04:17 | disposition home or self-care (01) ==
LOC: ED 02:39
DX: G43.109 Migraine with aura, not intractable, without status migrainosus (principal); I10 Essential (primary) hypertension
CPT/HCPCS: 36415; 96361; 96374; 99284

== ENCOUNTER 2020-08-03 16:08 | Emergency (ER) | payer MEDICARE, OTHER ==
[2020-08-03] MEDS ORDERED: BUTALB/ACETAM/CAFF 50/325/40MG TABLET PO STA (17:10)
--- NOTE | 2020-08-03 17:12 | ED Physician Documentation ---
History of Present Illness - Stated complaint Stated Complaint: MIGRAINE - Chief complaint Chief Complaint: Neuro - History obtained from History obtained from: Patient - History of Present Illness Timing: Today Pain level max: 0 Pain level now: 0 - Additonal information Additional information: 75-year-old female presents to the emergency department with a right-sided headache for the past 3 to 4 days. Was seen here yesterday for same. [place] better after Toradol, went home and slept. She states that she thinks that the headache is from yellow onions on a hamburger. She went back to the hamburger place yesterday and ate another hamburger and now has a recurrent headache. States she has had headaches similar to this for years. No fevers. No chills. Nothing makes it better or worse. She has a history of a meningioma as well. No focal neurological deficits. No numbness or tingling. Took Tylenol this morning without relief. 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 - Present Medications Home Medications: Ambulatory Orders Medication Instructions Recorded Confirmed Buspirone HCl 15 mg PO BID 08/13/14 08/31/18 Cetirizine HCl [Zyrtec] 10 mg PO DAILY 08/13/14 08/31/18 Aripiprazole [Abilify] 1 tab PO DAILY 08/31/18 08/31/18 Atorvastatin [Lipitor] 1 tab PO DAILY 08/31/18 08/31/18 Desvenlafaxine Succinate [Pristiq] 1 tab PO DAILY 08/31/18 08/31/18 Levothyroxine Sodium [Synthroid] 1 tab PO DAILY 08/31/18 08/31/18 lisinopriL [Lisinopril] 1 tab PO DAILY 08/31/18 08/31/18 Ondansetron Odt [Zofran] 4 mg TL Q6H PRN #10 tablet 08/02/20 Butalb/Acetaminophen/Caffeine 1 cap PO Q6H PRN #10 capsule 08/03/20 [Fioricet 50-300-40 mg Capsule] Cephalexin [Keflex] 500 mg PO Q6H #20 capsule 08/03/20 Ondansetron Odt [Zofran] 4 mg TL Q6H PRN #10 tablet 08/03/20 - Allergies Allergies/Adverse Reactions: Allergies Allergy/AdvReac Type Severity Reaction Status Date / Time codeine Allergy Hallucinati Verified 08/03/20 16:39 ons cocaine AdvReac Unknown Verified 08/03/20 16:39 - Social History Does the pt smoke?: No Smoking Status: Never smoker Does the pt drink ETOH?: No Does the pt have substance abuse?: No - Immunizations Immunizations are current?: Yes - POLST Patient has POLST: No PD ED PE NORMAL - Vitals Vital signs reviewed: Yes - General General: Alert and oriented X 3, No acute distress - HEENT HEENT: PERRL, EOMI, Ears normal, Moist mucous membranes, Pharynx benign, Other (no temporal artery tenderness.) - Neck Neck: Supple, no meningeal sign - Cardiac Cardiac: RRR, Strong equal pulses - Respiratory Respiratory: No respiratory distress, Clear bilaterally - Abdomen Abdomen: Soft, Non tender, Non distended - Back Back: No spinal TTP - Derm Derm: Warm and dry - Extremities Extremities: No edema - Neuro Neuro: Alert and oriented X 3, 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 garment 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, No motor deficit, No sensory deficit, Normal speech Eye Opening: Spontaneous Motor: Obeys Commands Verbal: Oriented GCS Score: 15 - Psych Psych: Normal mood, Normal affect Results - Vitals Vitals: Vital Signs - 24 hr 08/03/20 08/03/20 08/03/20 16:35 17:39 18:16 Temperature 36.2 C L 37.0 C 37.0 C Heart Rate 76 69 73 Respiratory 13 12 12 Rate Blood Pressure 191/80 H 174/83 H 165/93 H O2 Saturation 99 98 100 08/03/20 18:57 Temperature 36.7 C Heart Rate 71 Respiratory 12 Rate Blood Pressure 161/74 H O2 Saturation 98 Oxygen O2 Source Room air - Labs Labs: Laboratory Tests 08/03/20 08/03/20 08/03/20 17:00 17:00 17:00 WBC 6.8 RBC 4.99 Hgb 14.0 Hct 44.0 MCV 88.2 MCH 28.1 MCHC 31.8 L RDW 13.3 Plt Count 156 MPV 10.8 Neut # (Auto) 4.2 Lymph # (Auto) 1.7 [place] # (Auto) 0.6 Eos # (Auto) 0.2 Baso # (Auto) 0.0 Absolute Nucleated RBC 0.00 Nucleated RBC % 0.0 ESR 29 Sodium 138 Potassium 3.8 Chloride 99 L Carbon Dioxide 24 Anion Gap 15.0 H BUN 18 Creatinine 0.8 Estimated GFR (MDRD) 70 L Glucose 103 H Calcium 9.2 Total Bilirubin 0.6 AST 21 ALT 22 Alkaline Phosphatase 95 C-Reactive Protein < 1.0 Total Protein 7.7 Albumin 3.9 Globulin 3.8 Albumin/Globulin Ratio 1.0 Lipase 41 Urine Color Urine Clarity Urine pH Ur Specific [place] Urine Protein Urine Glucose (UA) Urine Ketones Urine Occult Blood Urine Nitrite Urine Bilirubin Urine Urobilinogen Ur Leukocyte Esterase Urine RBC Urine WBC Urine WBC Clumps Ur Squamous Epith Cells Urine Bacteria Ur Microscopic Review Urine Culture Comments 08/03/20 18:30 WBC RBC Hgb Hct MCV MCH MCHC RDW Plt Count MPV Neut # (Auto) Lymph # (Auto) [place] # (Auto) Eos # (Auto) Baso # (Auto) Absolute Nucleated RBC Nucleated RBC % ESR Sodium Potassium Chloride Carbon Dioxide Anion Gap BUN Creatinine Estimated GFR (MDRD) Glucose Calcium Total Bilirubin AST ALT Alkaline Phosphatase C-Reactive Protein Total Protein Albumin Globulin Albumin/Globulin Ratio Lipase Urine Color YELLOW Urine Clarity HAZY Urine pH 6.0 Ur Specific [place] 1.025 Urine Protein NEGATIVE Urine Glucose (UA) NEGATIVE Urine Ketones 15 H Urine Occult Blood SMALL H Urine Nitrite POSITIVE H Urine Bilirubin NEGATIVE Urine Urobilinogen 0.2 (NORMAL) Ur Leukocyte Esterase SMALL H Urine RBC 11-25 H Urine WBC >25 H Urine WBC Clumps PRESENT Ur Squamous Epith Cells RARE Squamous Urine Bacteria Many H Ur Microscopic Review INDICATED Urine Culture Comments INDICATED - Rads (name of study) head cT Radiology: Prelim report reviewed, EMP read contemporaneously, See rad report (No acute abnormality) PD MEDICAL DECISION MAKING - ED course Complexity details: reviewed old records, reviewed results, re-evaluated patient, considered differential, d/w patient, d/w family ED course: Patient is well-appearing, nontoxic. Afebrile. No evidence of subarachnoid hemorrhage. Headache resolved with Fioricet. We will prescribe this for home as well. Upon discharging the patient, she complained of urinary symptoms as well, therefore UA was obtained and found to have UTI. Will treat this as well. No evidence of sepsis. Patient counseled regarding signs and symptoms for wh ich I believe and urgent re-evaluation would be necessary. Patient with good understanding of and agreement to plan and is comfortable going home at this time This document was made in part using voice recognition software. While efforts are made to proofread this document, sound alike and grammatical errors may occur. Departure - Departure Disposition: Home, Self Care Clinical Impression: Headache UTI (urinary tract infection) Qualifiers: Urinary tract infection type: acute cystitis Hematuria presence: without hematuria Qualified Code(s): N30.00 - Acute cystitis without hematuria Condition: Good Instructions: ED Cephalgia Unspecified, ED UTI Cystitis Female Follow-Up: your,doctor in 3 days [Other] Prescriptions: Butalb/Acetaminophen/Caffeine [Fioricet 50-300-40 mg Capsule] 1 cap PO Q6H PRN #10 capsule PRN Reason: headache Cephalexin [Keflex] 500 mg PO Q6H #20 capsule Ondansetron Odt [Zofran] 4 mg TL Q6H PRN #10 tablet PRN Reason: Nausea / Vomiting Comments: Go home and rest. Return if you worsen. Follow-up with your doctor for further care. There are no acute findings on your head CT or laboratory testing today. Discharge Date/Time: 08/03/20 19:28
[2020-08-03 17:13] LABS: BASOPHILS % (AUTO) 0.6 %; EOSINOPHILS # (AUTO) 0.2 10^3/uL (0.0-0.7); EOSINOPHILS % (AUTO) 3.4 %; LYMPHOCYTES # (AUTO) 1.7 10^3/uL (1.5-3.5); LYMPHOCYTES % (AUTO) 25.6 %; MEAN CORPUSCULAR HEMOGLOBIN 28.1 pg (27.0-31.0); MEAN CORPUSCULAR HGB CONC 31.8 g/dL (32.0-36.0); MEAN CORPUSCULAR VOLUME 88.2 fL (81.0-99.0); MEAN PLATELET VOLUME 10.8 fL (7.9-10.8); MONOCYTES # (AUTO) 0.6 10^3/uL (0.0-1.0); NEUTROPHILS # (AUTO) 4.2 10^3/uL (1.5-6.6); PLT - PLATELET COUNT 156 10^3/uL (130-450); RED BLOOD COUNT 4.99 10^6/uL (4.20-5.40); RED CELL DISTRIBUTION WIDTH 13.3 % (12.0-15.0); WHITE BLOOD COUNT 6.8 x10^3/uL (4.8-10.8)
[2020-08-03 17:29] LABS: ALBUMIN 3.9 g/dL (3.2-5.5); ALKALINE PHOSPHATASE 95 IU/L (42-121); ALT ALANINE AMINOTRANSFERASE 22 IU/L (10-60); AST ASPARTATE AMINOTRANSFERASE 21 IU/L (10-42); BILIRUBIN,TOTAL 0.6 mg/dL (0.2-1.0); BUN - BLOOD UREA NITROGEN 18 mg/dL (6-20); CALCIUM 9.2 mg/dL (8.5-10.3); CARBON DIOXIDE - CO2 24 mmol/L (21-32); CHLORIDE 99 mmol/L (101-111); CREATININE 0.8 mg/dL (0.4-1.0); GLUCOSE 103 mg/dL (70-100); LIPASE 41 U/L (22-51); SODIUM 138 mmol/L (135-145); TOTAL PROTEIN 7.7 g/dL (6.7-8.2)
--- NOTE | 2020-08-03 17:29 | CT Report ---
PROCEDURE: HEAD WO INDICATIONS: headache x 5 days TECHNIQUE: Noncontrast 4.5 mm thick angled axial sections acquired from the foramen magnum to the vertex. For r adiation dose reduction, the following was used: automated exposure control, adjustment of mA and/or kV according to patient size. COMPARISON: Correlation is made with prior brain MRI examinations 02/14/2019 and 02/11/2018 FINDINGS: Image quality: Excellent. CSF spaces: Basal cisterns are patent. No extra-axial fluid collections. Ventricles are normal in size and shape. Brain: No midline shift. No intracranial masses or hemorrhage. Lew-white matter interface is norm al. Skull and face: Calvarium and visualized facial bones are intact, without suspicious lesions. Sinuses: Visualized sinuses and mastoids are clear. IMPRESSION: A cause of headache cannot be seen on these images. No intracranial hemorrhage is seen. Reviewed by: Caden Hein MD on 08/03/2020 4:27 PM ROBERT Approved by: Caden Hein MD on 08/03/2020 4:27 PM ROBERT Station ID: [id number]
[2020-08-03 17:32] LABS: CRP - C-REACTIVE PROTEIN < 1.0 mg/dL (0-1.0)
[2020-08-03] MEDS ORDERED: ONDANSETRON ODT 4 MG TABLET TL STA (17:43)
[2020-08-03 18:47] LABS: BILIRUBIN,URINE NEGATIVE (NEGATIVE); GLUCOSE, URINE (UA) NEGATIVE (NEGATIVE); KETONES,URINE (UA) 15 mg/dL (NEGATIVE); LEUKOCYTE ESTERASE, URINE SMALL (NEGATIVE); NITRITE,URINE POSITIVE (NEGATIVE); OCCULT BLOOD,URINE SMALL (NEGATIVE); PROTEIN,URINE NEGATIVE (NEGATIVE); UROBILINOGEN,URINE 0.2 (NORMAL) E.U./dL (NORMAL)
[2020-08-03 18:49] LABS: CLARITY,URINE HAZY (CLEAR)
[2020-08-03 18:57] LABS: BACTERIA,URINE Many /HPF (None Seen); SQUAMOUS EPITHELIAL CELL,UR RARE Squamous (<= Few); WBC CLUMPS,URINE PRESENT
[2020-08-03 18:59] VITALS: BP 161/74
[2020-08-03] MEDS ORDERED: cephALEXin 250 MG CAPSULE PO STA (19:04)
[2020-08-03] MEDS ORDERED: PHENAZOPYRIDINE 100 MG TABLET PO STA (19:17)
== END 2020-08-03 19:28 | disposition home or self-care (01) ==
LOC: ED 16:08
DX: R51 Headache (principal); N30.00 Acute cystitis without hematuria
CPT/HCPCS: 36415; 70450; 80053; 81001; 83690; 85025; 85651; 86140; 87086; 87181; 99284; A9270; Q0162; 81003

== ENCOUNTER 2020-08-17 12:40 | Outpatient (CLI) | payer MEDICARE, OTHER ==
[2020-08-17] MEDS ORDERED: GADOBUTROL 7.5 MMOL/7.5 ML VIAL ONE (13:03)
[2020-08-17] MEDS ORDERED: GADOBUTROL 7.5 MMOL/7.5 ML VIAL IVP ONE (13:48)
--- NOTE | 2020-08-19 08:04 | MRI Report ---
PROCEDURE: Brain W/WO INDICATIONS: MENINGIOMA CONTRAST: IV CONTRAST: Gadavist ml: 7 TECHNIQUE: Noncontrast axial T1 spin echo, axial T2 fast spin echo, sagittal and axial FLAIR, coronal T2 fast sp in echo, axial gradient echo, axial diffusion and ADC through the brain. After the administration of contrast, axial and coronal T1 spin echo with fat saturation through the brain. COMPARISON: 02/14/2019 MRI brain. FINDINGS: Image quality: Excellent. CSF spaces: Basal cisterns are patent. No extra-axial fluid collections. Ventricles are normal in size and shape. Brain: Mass consistent with meningioma has increased in size. This currently measures 1.2 x 1.3 cm in maximum axial dimension (series 1002 image 49), compared with approximately 1.0 x 1.0 cm maximum axi al dimension on 02/14/2019 exam. Minimal mass effect on the adjacent gyrus rectus and inferior frontal lobes. No edema within the adjacent brain parenchyma. Scattered FLAIR/T2 hyperintense lesions consis tent with chronic microvascular ischemic changes. No other abnormal brain parenchymal enhancement or signal. Skull and face: Calvarial marrow is normal in signal. Orbits appear normal. Sinuses: Bilateral maxillary sinus mucosal thickening with inferior right maxillary sinus mucous rete ntion cyst remaining paranasal sinuses and mastoid air cells are predominantly clear. IMPRESSION: Mildly increased size of presumed meningioma in the anterior cranial fossa. Reviewed by: Jaime Salguero MD on 08/19/2020 8:03 AM PDT Approved by: Jaime Salguero MD on 08/19/2020 8:03 AM PDT Station ID: [id number]
== END 2020-08-17 12:41 | disposition home or self-care (01) ==
LOC: DI 12:40
PROVIDERS: ATTEND Family Medicine
DX: D32.0 Benign neoplasm of cerebral meninges (principal)
CPT/HCPCS: 70553; A9585

== ENCOUNTER 2020-09-16 12:47 | Outpatient (CLI) | payer MEDICARE, OTHER ==
--- NOTE | 2020-09-17 16:44 | Mammography Report ---
BILATERAL DIGITAL SCREENING MAMMOGRAM 3D/2D: 09/16/2020 CLINICAL: Routine screening. Comparison is made to exams dated: 09/05/2019 mammogram, 07/11/2018 ultrasound, 07/11/2018 mammogram, ultrasound, 06/07/2017 mammogram, and 05/26/2017 mammogram - [facility]. Th ere are scattered fibroglandular elements in both breasts. No significant masses, calcifications, or other findings are seen in either breast. There has been no significant interval change. IMPRESSION: NEGATIVE There is no mammographic evidence of malignancy. A 1 year screening mammogram is recommended. This exam was interpreted at Station ID: [id number]. NOTE: For mammograms, a report in lay terms will be sent to the patient. Approximately 15% of breast malignancies will not be visualized mammographically. In the management of a palpable breast mass, a negative mammogram must not discourage biopsy of a clinically suspicious lesion. Electronically Signed By: Fletcher jett/ankush:09/16/2020 15:17:20 ACR BI-RADS Category 1: Negative [id number] PARENCHYMAL PATTERN: (A) - The breast(s) demonstrate(s) scattered fibroglandular densities. BI-RADS CATEGORY: (1) - 1 RECOMMENDATION: (ANNUAL) - Recommend routine annual screening mammography. [id number] 1 year screening LATERALITY: (B)
== END 2020-09-16 12:48 | disposition home or self-care (01) ==
LOC: DI.N 12:47
DX: Z12.31 Encounter for screening mammogram for malignant neoplasm of breast (principal)
CPT/HCPCS: 77063; 77067

== ENCOUNTER 2020-12-02 01:30 | Outpatient (CLI) | payer MEDICARE, OTHER | END 2020-12-02 23:59 | disposition home or self-care (01) | LOC: LAB.R 01:30 | PROVIDERS: ATTEND Family Medicine | DX: R53.83 Other fatigue (principal); Z20.822 Contact with and (suspected) exposure to COVID-19 ==

== ENCOUNTER 2021-02-17 08:00 | Outpatient (CLI) | payer MEDICARE, OTHER | END 2021-02-17 23:59 | disposition home or self-care (01) | LOC: LAB.R 08:00 | PROVIDERS: ATTEND Family Medicine | DX: R39.9 Unspecified symptoms and signs involving the genitourinary system (principal) | CPT/HCPCS: 87086 ==

== ENCOUNTER 2021-05-07 19:37 | Outpatient (CLI) | payer MEDICARE, OTHER ==
--- NOTE | 2021-05-08 09:25 | Ultrasound Report ---
PROCEDURE: Duplex Ext Veins Bilateral INDICATIONS: JUDYE SCHEIDT TECHNIQUE: Real-time imaging, as well as color and pulse Doppler interrogation, were performed of the deep veins of both legs from the inguinal ligament to the popliteal fossa. COMPARISON: CT abdomen/pelvis 05/07/2020. FINDINGS: The deep veins are normally compressible, and free of intraluminal thrombus. Color and pu lse Doppler demonstrate normal phasic intravascular flow. There is normal augmentation response to d istal compression maneuver. Small Haley's cysts appear present behind each knee. This measures 1.6 x 1.4 x 5.3 cm on the right and 1.4 x 1.9 x 0.8 cm on the left. IMPRESSION: No DVT found bilaterally. Bilateral Haley's cyst behind the knee larger on the right than the left. Reviewed by: Jeff Cooper MD on 05/08/2021 9:23 AM PDT Approved by: Jeff Cooper MD on 05/08/2021 9:23 AM PDT Station ID: [id number]
== END 2021-05-07 19:38 | disposition home or self-care (01) ==
LOC: DI 19:37
PROVIDERS: ATTEND Family Medicine
DX: R60.0 Localized edema (principal); M71.22 Synovial cyst of popliteal space [Baker], left knee; M71.21 Synovial cyst of popliteal space [Baker], right knee
CPT/HCPCS: 93970

== ENCOUNTER 2021-08-02 16:27 | Emergency (ER) | payer MEDICARE, OTHER ==
--- NOTE | 2021-08-02 16:58 | ED Physician Documentation ---
PD HPI ABD PAIN - Stated complaint Stated Complaint: RECTAL BLEEDING - Chief complaint Chief Complaint: Abd Pain - History obtained from History obtained from: Patient - Additional information Additional information: 76-year-old woman with history of diverticula had a very hard bowel movement yesterday she was sitting on the toilet yesterday afternoon and felt like she had to gyrate around to get small balls of stool out. After that she had a squirt of blood and subsequently overnight had several soft bowel movements each time associated with blood, and a single black bowel movement. She has some left lower quadrant pain starting around the same time yesterday. No history of GI bleeding. Not anticoagulated. 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 - Present Medications Home Medications: Ambulatory Orders Medication Instructions Recorded Confirmed Buspirone HCl 15 mg PO BID 08/13/14 08/31/18 Cetirizine HCl [Zyrtec] 10 mg PO DAILY 08/13/14 08/31/18 Aripiprazole [Abilify] 1 tab PO DAILY 08/31/18 08/31/18 Atorvastatin [Lipitor] 1 tab PO DAILY 08/31/18 08/31/18 Desvenlafaxine Succinate [Pristiq] 1 tab PO DAILY 08/31/18 08/31/18 Levothyroxine Sodium [Synthroid] 1 tab PO DAILY 08/31/18 08/31/18 lisinopriL [Lisinopril] 1 tab PO DAILY 08/31/18 08/31/18 Ondansetron Odt [Zofran] 4 mg TL Q6H PRN #10 tablet 08/02/20 Butalb/Acetaminophen/Caffeine 1 cap PO Q6H PRN #10 capsule 08/03/20 [Fioricet 50-300-40 mg Capsule] Ondansetron Odt [Zofran] 4 mg TL Q6H PRN #10 tablet 08/03/20 cephALEXin [Keflex] 500 mg PO Q6H #20 capsule 08/03/20 Amox/Clav 875/125 [Augmentin] 1 each PO TID #30 tablet 08/02/21 - Allergies Allergies/Adverse Reactions: Allergies Allergy/AdvReac Type Severity Reaction Status Date / Time codeine Allergy Hallucinati Verified 08/02/21 16:32 ons cocaine AdvReac Unknown Verified 08/02/21 16:32 - Social History Does the pt smoke?: No Smoking Status: Never smoker Does the pt drink ETOH?: No Does the pt have substance abuse?: No - Immunizations Immunizations are current?: Yes - POLST Patient has POLST: No PD ED PE NORMAL - Vitals Vital signs reviewed: Yes - General General: Alert and oriented X 3, No acute distress - HEENT HEENT: PERRL, EOMI - Neck Neck: Supple, no meningeal sign, No bony TTP - Cardiac Cardiac: Other (Tachycardic but regular without murmur) - Respiratory Respiratory: No respiratory distress, Clear bilaterally - Abdomen Abdomen: Other (Hyperactive bowel tones but nontender) - Back Back: No CVA TTP, No spinal TTP - Derm Derm: Normal color, Warm and dry - Extremities Extremities: No edema, No calf tenderness / cord - Neuro Neuro: Alert and oriented X 3, Normal speech Results - Vitals Vitals: Vital Signs - 24 hr 08/02/21 08/02/21 08/02/21 16:33 18:30 20:07 Temperature 37.3 C Heart Rate 113 H 88 85 Respiratory 18 16 14 Rate Blood Pressure 150/94 H 147/92 H 138/79 H O2 Saturation 98 97 98 Oxygen O2 Source Room air - Labs Labs: Laboratory Tests 08/02/21 08/02/21 08/02/21 17:52 17:52 17:52 WBC 8.7 RBC 4.96 Hgb 13.9 Hct 43.8 MCV 88.3 MCH 28.0 MCHC 31.7 L RDW 14.1 Plt Count 279 MPV 9.8 Neut # (Auto) 6.2 Lymph # (Auto) 1.6 [place] # (Auto) 0.7 Eos # (Auto) 0.2 Baso # (Auto) 0.0 Absolute Nucleated RBC 0.00 Nucleated RBC % 0.0 PT 10.6 INR 1.0 Sodium Potassium Chloride Carbon Dioxide Anion Gap BUN Creatinine Estimated GFR (MDRD) Glucose Calcium Total Bilirubin AST ALT Alkaline Phosphatase Total Protein Albumin Globulin Albumin/Globulin Ratio Lipase Blood Type A POSITIVE Blood Type Recheck Antibody Screen NEGATIVE 08/02/21 08/02/21 17:52 18:52 WBC RBC Hgb Hct MCV MCH MCHC RDW Plt Count MPV Neut # (Auto) Lymph # (Auto) [place] # (Auto) Eos # (Auto) Baso # (Auto) Absolute Nucleated RBC Nucleated RBC % PT INR Sodium 140 Potassium 4.1 Chloride 103 Carbon Dioxide 28 Anion Gap 9.0 BUN 24 H Creatinine 0.9 Estimated GFR (MDRD) 61 L Glucose 101 H Calcium 9.6 Total Bilirubin 0.7 AST 25 ALT 27 Alkaline Phosphatase 105 Total Protein 7.5 Albumin 4.1 Globulin 3.4 Albumin/Globulin Ratio 1.2 Lipase 65 H Blood Type Blood Type Recheck A POSITIVE Antibody Screen PD MEDICAL DECISION MAKING - ED course ED course: 76-year-old woman with left lower quadrant pain and hematochezia. Mild gross blood on exam. She is tachycardic but her blood counts are reassuring. Vital signs normalized without specific intervention. CT showing diverticulitis and given the ongoing bleeding will treat with antibiotics as we needed to it calmed down pretty quick. No evidence of perforation or sepsis. Departure - Departure Disposition: Home, Self Care Clinical Impression: Diverticulitis, Lower GI bleed Condition: Good Record reviewed to determine appropriate education?: Yes Instructions: ED Hematochezia Stable Prescriptions: Amox/Clav 875/125 [Augmentin] 1 each PO TID #30 tablet Comments: Prescription sent electronically to [facility] in [place]. As discussed, the cause of your lower GI bleeding today is an apparent flare of diverticulitis for which I am starting you on antibiotics. You should do a clear liquid diet for the next 24 hours, then on Wednesday low residue diet with things like white rice, scrambled eggs, nothing heavy from a meat or vegetable perspective until Wednesday. You do need to follow-up with your physician and get a referral for colonoscopy. Return for new or worsening symptoms. Or if bleeding is gone over the next couple of days. Discharge Date/Time: 08/02/21 20:08
[2021-08-02] MEDS ORDERED: IOPAMIDOL-300 100 ML VIAL ONE (17:55)
[2021-08-02 18:00] LABS: BASOPHILS % (AUTO) 0.5 %; EOSINOPHILS # (AUTO) 0.2 10^3/uL (0.0-0.7); EOSINOPHILS % (AUTO) 2.3 %; HCT - HEMATOCRIT 43.8 % (37.0-47.0); HGB - HEMOGLOBIN 13.9 g/dL (12.0-16.0); LYMPHOCYTES # (AUTO) 1.6 10^3/uL (1.5-3.5); LYMPHOCYTES % (AUTO) 18.1 %; MEAN CORPUSCULAR HGB CONC 31.7 g/dL (32.0-36.0); MEAN CORPUSCULAR VOLUME 88.3 fL (81.0-99.0); MEAN PLATELET VOLUME 9.8 fL (7.9-10.8); MONOCYTES # (AUTO) 0.7 10^3/uL (0.0-1.0); MONOCYTES % (AUTO) 7.8 %; NEUTROPHILS # (AUTO) 6.2 10^3/uL (1.5-6.6); NEUTROPHILS % (AUTO) 71.1 %; PLT - PLATELET COUNT 279 10^3/uL (130-450); RED BLOOD COUNT 4.96 10^6/uL (4.20-5.40); RED CELL DISTRIBUTION WIDTH 14.1 % (12.0-15.0); WHITE BLOOD COUNT 8.7 x10^3/uL (4.8-10.8)
[2021-08-02 18:05] LABS: PT - PROTHROMBIN TIME 10.6 secs (9.9-12.6)
[2021-08-02 18:15] LABS: ALBUMIN 4.1 g/dL (3.2-5.5); ALBUMIN/GLOBULIN RATIO 1.2 (1.0-2.2); BILIRUBIN,TOTAL 0.7 mg/dL (0.2-1.0); CALCIUM 9.6 mg/dL (8.5-10.3); CREATININE 0.9 mg/dL (0.4-1.0); POTASSIUM 4.1 mmol/L (3.5-5.0); TOTAL PROTEIN 7.5 g/dL (6.7-8.2)
[2021-08-02] MEDS ORDERED: IOPAMIDOL-300 100 ML VIAL IVP ONE (18:50)
--- NOTE | 2021-08-02 19:40 | CT Report ---
PROCEDURE: Abdomen/Pelvis W INDICATIONS: IV only, LLQ pain w hematochezia CONTRAST: IV CONTRAST: Isovue 300 ml: 100 PO CONTRAST: *NO PO CONTRAST TECHNIQUE: After the administration of weight appropriate dose of intravenous contrast, 5 mm thick sections acqu ired from the diaphragms to the symphysis. 5 mm thick coronal and sagittal reformats were acquired. For radiation dose reduction, the following was used: automated exposure control, adjustment of mA and/or kV according to patient size. COMPARISON: 05/07/2020 and 08/08/2018 FINDINGS: Image quality: Excellent. ABDOMEN: Lung bases: Lung bases are clear. Heart size is normal. Solid organs: Liver and spleen are normal in size and enhancement. Gallbladder is unremarkable Jw iary system is non dilated. Pancreas enhances normally. No adrenal nodules. Kidneys demonstrate no rmal size and enhancement, without hydronephrosis. Stable partially exophytic right renal cyst. Peritoneum and bowel: Bowel loops demonstrate normal wall thickness and caliber. There is scattered colonic diverticulosis with associated inflammatory changes involving a segment of the distal descend ing colon and proximal sigmoid colon. No free fluid or air. No abscess formation Nodes and vessels: No retroperitoneal or mesenteric adenopathy by size criteria. Aorta and inferior vena cava are normal in size. Miscellaneous: No ventral hernias. PELVIS: Genitourinary: Bladder wall thickness is normal. Miscellaneous: No inguinal hernias or adenopathy. Bones: No suspicious bony lesions. No acute vertebral body compression fractures. IMPRESSION: Colonic diverticulosis with acute diverticulitis involving a segment of the distal descending colon and proximal sigmoid colon. No evidence for perforation or abscess formation. Reviewed by: Fazal Kamara MD on 08/02/2021 7:38 PM PDT Approved by: Fazal Kamara MD on 08/02/2021 7:38 PM PDT Station ID: [id number]
[2021-08-02] MEDS ORDERED: AMOX/CLAV 875 MG/125 MG TABLET PO STA (19:56)
[2021-08-02 20:08] VITALS: BP 138/79
== END 2021-08-02 20:08 | disposition home or self-care (01) ==
LOC: ED 16:27
DX: K57.92 Diverticulitis of intestine, part unspecified, without perforation or abscess without bleeding (principal); K92.1 Melena; R00.0 Tachycardia, unspecified; I10 Essential (primary) hypertension
CPT/HCPCS: 36415; 74177; 80053; 83690; 85025; 85610; 86850; 86900; 86901; 99284; A9270; Q9967

== ENCOUNTER 2021-10-30 08:58 | Outpatient (CLI) | payer MEDICARE, OTHER ==
[2021-10-30 09:20] LABS: CREATININE 0.9 mg/dL (0.4-1.0)
[2021-10-30] MEDS ORDERED: GADOBUTROL 7.5 MMOL/7.5 ML VIAL ONE (09:47)
[2021-10-30] MEDS ORDERED: GADOBUTROL 7.5 MMOL/7.5 ML VIAL IVP ONE (11:10)
--- NOTE | 2021-10-30 15:28 | MRI Report ---
PROCEDURE: Brain W/WO INDICATIONS: MENINGIOMA CONTRAST: IV CONTRAST: Gadavist ml: 6.8 TECHNIQUE: Noncontrast axial T1 spin echo, axial T2 fast spin echo, sagittal and axial FLAIR, coronal T2 fast sp in echo, axial gradient echo, axial diffusion and ADC through the brain. After the administration of contrast, axial and coronal T1 spin echo with fat saturation through the brain. COMPARISON: Numerous priors, including 08/17/2020, 02/14/2019, 02/11/2018 FINDINGS: Image quality: Excellent. CSF spaces: Basal cisterns are patent. No extra-axial fluid collections. Ventricles are normal in size and shape. Brain: Along the midline of the frontal lobes inferiorly, there is again seen an avidly enhancing ex tra-axial mass that is centered just to the left of the midline and today measures 12 mm AP by 12 mm transversely, with a craniocaudal extent of 12 mm. This is not significantly changed in size compared to the prior examination. No new masses are seen. No new areas of enhancement can be seen. No midline shift. There is cerebral volume loss for age. There is periventricular white matter chr onic small vessel ischemic change. The brainstem appears normal. Diffusion-weighted images demonstr ate no acute ischemic insults. No chronic ischemic insults. Normal intravascular flow voids are pre sent. Skull and face: Calvarial marrow is normal in signal. Orbits appear normal. Incidental note is ma de of bilateral lens replacements. Sinuses: Sinuses and mastoids appear clear. IMPRESSION: Stable presumed meningioma seen along the floor of the anterior cranial fossa between the frontal lob es, centered just to the left of the midline. Reviewed by: Caden Hein MD on 10/30/2021 2:26 PM [place] Approved by: Caden Hein MD on 10/30/2021 2:26 PM [facility] Station ID: [id number]
== END 2021-10-30 08:59 | disposition home or self-care (01) ==
LOC: DI 08:58
PROVIDERS: ATTEND Family Medicine
DX: D32.9 Benign neoplasm of meninges, unspecified (principal)
CPT/HCPCS: 36415; 70553; 82565; A9585

== ENCOUNTER 2021-10-30 09:13 | Outpatient (CLI) | payer MEDICARE, OTHER ==
--- NOTE | 2021-10-31 10:19 | Mammography Report ---
BILATERAL DIGITAL SCREENING MAMMOGRAM 3D/2D: 10/30/2021 CLINICAL: Routine screening. Comparison is made to exams dated: 09/16/2020 mammogram, 09/05/2019 mammogram, 07/11/2018 ultrasound, 07/11/2018 mammogram, 06/07/2017 ultrasound, and 06/07/2017 mammogram - [facility]. T here are scattered fibroglandular elements in both breasts. No significant masses, calcifications, or other findings are seen in either breast. There has been no significant interval change. IMPRESSION: NEGATIVE There is no mammographic evidence of malignancy. A 1 year screening mammogram is recommended. This exam was interpreted at Station ID: [id number]. NOTE: For mammograms, a report in lay terms will be sent to the patient. Approximately 15% of breast malignancies will not be visualized mammographically. In the management of a palpable breast mass, a negative mammogram must not discourage biopsy of a clinically suspicious lesion. Electronically Signed By: Hemanth staley/ankush:10/30/2021 11:25:41 ACR BI-RADS Category 1: Negative 3341F PARENCHYMAL PATTERN: (A) - The breast(s) demonstrate(s) scattered fibroglandular densities. BI-RADS CATEGORY: (1) - 1 RECOMMENDATION: (ANNUAL) - Recommend routine annual screening mammography. [id number] 1 year screening LATERALITY: (B)
== END 2021-10-30 09:14 | disposition home or self-care (01) ==
LOC: DI 09:13
DX: Z12.31 Encounter for screening mammogram for malignant neoplasm of breast (principal)

== ENCOUNTER 2022-01-12 12:08 | Day surgery (SDC) | payer MEDICARE, OTHER ==
[2022-01-12] MEDS ORDERED: LACTATED RINGERS 1,000 ML IV ONE ×2 (12:28→13:56)
--- NOTE | 2022-01-12 13:22 | ANESTHESIA ---
Pre-Anesthesia VS, & Labs - Diagnosis screening - Procedure colonoscopy Vital Signs: Temp Pulse Resp BP Pulse Ox 37.0 C 106 H 18 128/80 98 01/12/22 12:37 01/12/22 12:37 01/12/22 12:37 01/12/22 12:37 01/12/22 12:37 Height: 5 ft 6 in Weight (kg): 69 kg Body Mass Index: 24.5 BMI Classification: Healthy weight - NPO >8 hours - Is Patient ?: No Home Medications and Allergies Home Medications: Ambulatory Orders Albuterol Sulfate [Proair Hfa Inhaler] 1 - 2 puffs INH Q4H PRN 01/05/22 Fluticasone [Flonase] 1 sprays NICHOL BID PRN 01/05/22 Fluticasone/Salmeterol [Advair 100-50 Diskus] 1 each IH BID 01/05/22 Ipratropium/Albuterol [Duoneb] 3 ml INH Q4H PRN 01/05/22 Olopatadine HCl [Pataday] 1 ml EACHEYE DAILY 01/05/22 Venlafaxine ER [Effexor ER] 75 mg PO DAILY 01/05/22 Buspirone HCl 15 mg PO BID 08/13/14 Cetirizine HCl [Zyrtec] 10 mg PO DAILY PRN 08/13/14 Atorvastatin [Lipitor] 20 mg PO DAILY 08/31/18 Levothyroxine Sodium [Synthroid] 88 mcg PO DAILY 08/31/18 lisinopriL [Lisinopril] 2.5 mg PO DAILY 08/31/18 Albuterol Sulfate [Proair Hfa Inhaler] 1 - 2 puffs INH Q4H PRN 01/05/22 Fluticasone [Flonase] 1 sprays NICHOL BID PRN 01/05/22 Fluticasone/Salmeterol [Advair 100-50 Diskus] 1 each IH BID 01/05/22 Ipratropium/Albuterol [Duoneb] 3 ml INH Q4H PRN 01/05/22 Olopatadine HCl [Pataday] 1 ml EACHEYE DAILY 01/05/22 Venlafaxine ER [Effexor ER] 75 mg PO DAILY 01/05/22 Allergies/Adverse Reactions: Allergies Allergy/AdvReac Type Severity Reaction Status Date / Time codeine Allergy Hallucinati Verified 08/02/21 16:32 ons cocaine AdvReac jerking Verified 01/05/22 13:16 motions Anes History & Medical History - Anesthetic History Anesthesia Complications: reports: No previous complications - Medical History Cardiovascular: reports: Hypertension, High cholesterol Pulmonary: reports: Asthma, Sleep apnea Gastrointestinal: reports: Colon polyps Urinary: reports: Chronic bladder infection Neuro: reports: Migraines Musculoskeletal: reports: None Endocrine/Autoimmune: reports: HyPOthyroidism Smoking Status: Never smoker - Surgical History General: reports: Colonoscopy Urologic: Gynecologic: reports: Hysterectomy, Other Exam General: Alert, Oriented x3 Dental: WNL Mouth Opening: Greater than 4 Fingerbreadths Neck Mobility: Normal Mallampati classification: II Respiratory: Lungs clear Cardiovascular: Regular rate, Normal S1, Normal S2 Plan Anesthesia Type: Total IV Consent for Procedure(s) Verified and Reviewed: Yes Code Status: Attempt Resuscitation ASA classification: 2-Mild systemic disease Is this case an emergency?: No
[2022-01-12] MEDS ORDERED: PROPOFOL 500 MG/50 ML 500 MG/50 ML VIAL ONE (13:40)
[2022-01-12 14:31] VITALS: BP 147/55
--- NOTE | 2022-01-12 17:03 | ANESTHESIA POST OP EVALUATION ---
Anesthesia Post Eval - Post Anesthesia Eval Vitals: Last Vital Signs Temp 36.8 C 01/12/22 14:30 Pulse 78 01/12/22 14:30 Resp 16 01/12/22 14:30 BP 147/55 H 01/12/22 14:30 Pulse Ox 99 01/12/22 14:30 CV Function Including HR & BP: Stable Pain Control: Satisfactory Nausea & Vomiting: Negative Mental Status: Baseline Respiratory Status: Airway Patent Hydration Status: Satisfactory Anesthesia Complications: None
== END 2022-01-12 12:09 | disposition home or self-care (01) ==
LOC: SDS 12:08
PROVIDERS: ATTEND Surgery
PROC: 0DBL8ZZ Excision of Transverse Colon, Via Natural or Artificial Opening Endoscopic (ICD-10-PCS; principal; 2022-01-12 13:30)
DX: Z12.11 Encounter for screening for malignant neoplasm of colon (principal); D12.3 Benign neoplasm of transverse colon; K57.30 Diverticulosis of large intestine without perforation or abscess without bleeding; K64.8 Other hemorrhoids; F41.9 Anxiety disorder, unspecified; J45.909 Unspecified asthma, uncomplicated; G47.30 Sleep apnea, unspecified
CPT/HCPCS: 45380; J7120

== ENCOUNTER 2022-01-17 01:05 | Outpatient (CLI) | payer MEDICARE, OTHER | END 2022-01-17 01:06 | disposition critical access hospital (66) | LOC: EMS 01:05 | DX: G43.909 Migraine, unspecified, not intractable, without status migrainosus (principal) | CPT/HCPCS: A0425; A0429 ==

== ENCOUNTER 2022-01-17 01:33 | Emergency (ER) | payer MEDICARE, OTHER ==
--- NOTE | 2022-01-17 01:34 | ED Physician Documentation ---
PD HPI HEADACHE - Stated complaint Stated Complaint: MIGRAINE - History obtained from History obtained from: Patient, Family (daughter) - History of Present Illness Timing - onset: Today Timing - details: Gradual onset Pain level now: 5 Worst headache ever?: No: Worst headache ever? Location: Global Associated symptoms: Nausea, Vomiting. No: Fever, Vision changes Improved by: Rest, Dark room Worsened by: Light, Moving Contributing factors: No: Anticoagulated Similar symptoms before: Diagnosis (complex migraine headache) - Additional information Additional information: CHECO. daughter called 911 after speaking with her mother and, based on mothers speech pattern, was concerned patient was having migraine headache. Daughter says patient has long history of complex migraine headaches a feature of which is difficulty speaking. Patient cannot not provide reliable information during HPI/ROS due to significant difficulty speaking (often repeats answer to previous question, such as 9 (1-10 pain scale) also what she says when asked her height, and then her age). She tells me my hurts head. Review of Systems Unable to obtain: Other (limited due to patients difficulty speaking) Constitutional: reports: Reviewed and negative Eyes: reports: Reviewed and negative GI: reports: Nausea, Vomiting Neurologic: reports: Headache PD PAST MEDICAL HISTORY - Present Medications Home Medications: Ambulatory Orders Medication Instructions Recorded Confirmed Buspirone HCl 15 mg PO BID 08/13/14 01/17/22 Atorvastatin [Lipitor] 20 mg PO DAILY 08/31/18 01/17/22 Levothyroxine Sodium [Synthroid] 88 mcg PO DAILY 08/31/18 01/17/22 lisinopriL [Lisinopril] 2.5 mg PO DAILY 08/31/18 01/17/22 Albuterol Sulfate [Proair Hfa 1 - 2 puffs INH Q4H PRN 01/05/22 01/17/22 Inhaler] Fluticasone [Flonase] 1 sprays NICHOL BID PRN 01/05/22 01/17/22 Fluticasone/Salmeterol [Advair 1 each IH BID 01/05/22 01/17/22 100-50 Diskus] Ipratropium/Albuterol [Duoneb] 3 ml INH Q4H PRN 01/05/22 01/17/22 Olopatadine HCl [Pataday] 1 ml EACHEYE DAILY 01/05/22 01/17/22 Venlafaxine ER [Effexor ER] 75 mg PO DAILY 01/05/22 01/17/22 Butalb/Acetaminophen/Caffeine 1 - 2 each PO Q6HR PRN #14 cap 01/17/22 [Fioricet 50-300-40 mg Capsule] Ondansetron Odt [Zofran Odt] 4 mg PO Q6HR PRN 01/17/22 01/17/22 Ondansetron Odt [Zofran] 4 mg TL Q6H PRN #10 tablet 01/17/22 clonazePAM [Clonazepam] 0.5 mg PO BID 01/17/22 01/17/22 - Allergies Allergies/Adverse Reactions: Allergies Allergy/AdvReac Type Severity Reaction Status Date / Time codeine Allergy Hallucinati Verified 01/17/22 01:44 ons cocaine AdvReac jerking Verified 01/17/22 01:44 motions PD ED PE NORMAL - Vitals Vital signs reviewed: Yes - General General: No acute distress, Well developed/nourished, Other (perfers to cover eyes and/or keep them closed. answers are quiet and difficult to understand most answers. many answers are odd or gibberish) - HEENT HEENT: PERRL, EOMI - Neck Neck: Supple, no meningeal sign - Cardiac Cardiac: RRR, No murmur - Respiratory Respiratory: No respiratory distress, Clear bilaterally - Abdomen Abdomen: Soft, Non tender - Neuro Neuro: rn procedure 2-12 intact, No motor deficit, No sensory deficit, Normal speech Results - Vitals Vitals: Oxygen O2 Source Room air - Labs Labs: Laboratory Tests 01/17/22 01/17/22 02:00 02:00 WBC 11.0 H RBC 5.21 Hgb 14.2 Hct 44.9 MCV 86.2 MCH 27.3 MCHC 31.6 L RDW 13.5 Plt Count 266 MPV 9.9 Neut # (Auto) 9.2 H Lymph # (Auto) 1.0 L [place] # (Auto) 0.6 Eos # (Auto) 0.2 Baso # (Auto) 0.0 Absolute Nucleated RBC 0.00 Nucleated RBC % 0.0 Sodium 134 L Potassium 3.8 Chloride 98 L Carbon Dioxide 26 Anion Gap 10.0 BUN 19 Creatinine 0.8 Estimated GFR (MDRD) 69 L Glucose 150 H Calcium 9.4 Total Bilirubin 0.5 AST 27 ALT 31 Alkaline Phosphatase 92 Total Protein 8.3 H Albumin 4.2 Globulin 4.1 Albumin/Globulin Ratio 1.0 Lipase 55 H Ethyl Alcohol < 5.0 - Rads (name of study) CT Head Radiology: Prelim report reviewed, See rad report PD MEDICAL DECISION MAKING - ED course Complexity details: reviewed old records, reviewed results, re-evaluated patient, considered differential, d/w patient, d/w family ED course: presents with headache and difficulty with speaking. unremarkable blood test results and CT head has no acute findings. She is given zofran and toradol. On reevaluation, she seems a little more animated but it is difficult to gauge how much, if any, symptom relief she has achieved with these measures, as she continues to provide odd answers. Daughter, now in ED, insists this is patients typical pattern of speech when she gets migraine headaches. I asked daughter what medications have worked in the past, daughter is not sure although morphine and demerol are apparently what patient typically requests. We do not have demerol in ED, and I expressed my reluctance to provide any strong narcotics, as patient already seems a little drowsy but mostly confused, and narcotics can exacerbate these problems. After further discussion, and based on one of her previous ED visits for migraine headaches, plan is to give dose of fioricet and then daughter wants to take patient home. Rx for fioricet and zofran sent to patients pharmacy of choice Departure - Departure Disposition: 01 Home, Self Care Clinical Impression: Migraine Condition: Good Instructions: ED Headache Migraine Follow-Up: Jose G Gasca DO [Primary Care Provider] - Prescriptions: Butalb/Acetaminophen/Caffeine [Fioricet 50-300-40 mg Capsule] 1 - 2 each PO Q6HR PRN #14 cap PRN Reason: Headache Ondansetron Odt [Zofran] 4 mg TL Q6H PRN #10 tablet PRN Reason: Nausea / Vomiting Comments: Prescriptions for fioricet (for migraine headache) and ondansetron (for nausea) have been electronically submitted to [facility] pharmacy in [place]. The notes from when you were in this emergency department in July of 2020 indicates the fioricet seemed to work well on your migraine headache. I note that you have ondansetron (in a prescription bottle brought in by the medics), but it appears to have , and so a new prescription is being provided. Discharge Date/Time: 01/17/22 04:33
[2022-01-17] MEDS ORDERED: ONDANSETRON 4 MG/2 ML VIAL IVP STA (02:00)
[2022-01-17] MEDS ORDERED: KETOROLAC 30 MG/ML VIAL IVP STA (02:00)
[2022-01-17 02:07] LABS: BASOPHILS % (AUTO) 0.4 %; EOSINOPHILS # (AUTO) 0.2 10^3/uL (0.0-0.7); EOSINOPHILS % (AUTO) 1.5 %; HCT - HEMATOCRIT 44.9 % (37.0-47.0); HGB - HEMOGLOBIN 14.2 g/dL (12.0-16.0); LYMPHOCYTES % (AUTO) 9.2 %; MEAN CORPUSCULAR HEMOGLOBIN 27.3 pg (27.0-31.0); MEAN CORPUSCULAR HGB CONC 31.6 g/dL (32.0-36.0); MEAN CORPUSCULAR VOLUME 86.2 fL (81.0-99.0); MEAN PLATELET VOLUME 9.9 fL (7.9-10.8); MONOCYTES # (AUTO) 0.6 10^3/uL (0.0-1.0); MONOCYTES % (AUTO) 5.1 %; NEUTROPHILS # (AUTO) 9.2 10^3/uL (1.5-6.6); NEUTROPHILS % (AUTO) 83.6 %; PLT - PLATELET COUNT 266 10^3/uL (130-450); RED BLOOD COUNT 5.21 10^6/uL (4.20-5.40); RED CELL DISTRIBUTION WIDTH 13.5 % (12.0-15.0)
[2022-01-17 02:20] LABS: ALBUMIN 4.2 g/dL (3.2-5.5); ALKALINE PHOSPHATASE 92 IU/L (42-121); ALT ALANINE AMINOTRANSFERASE 31 IU/L (10-60); AST ASPARTATE AMINOTRANSFERASE 27 IU/L (10-42); BILIRUBIN,TOTAL 0.5 mg/dL (0.2-1.0); BUN - BLOOD UREA NITROGEN 19 mg/dL (6-20); CALCIUM 9.4 mg/dL (8.5-10.3); CARBON DIOXIDE - CO2 26 mmol/L (21-32); CHLORIDE 98 mmol/L (101-111); CREATININE 0.8 mg/dL (0.4-1.0); ETOH - ETHANOL < 5.0 mg/dL; GFR - MDRD 69 (>89); GLUCOSE 150 mg/dL (70-100); LIPASE 55 U/L (22-51); POTASSIUM 3.8 mmol/L (3.5-5.0); SODIUM 134 mmol/L (135-145); TOTAL PROTEIN 8.3 g/dL (6.7-8.2)
[2022-01-17] MEDS ORDERED: BUTALB/ACETAM/CAFF 50/325/40MG TABLET PO STA (04:03)
[2022-01-17 04:05] VITALS: BP 144/88
--- NOTE | 2022-01-17 07:33 | CT Report ---
PROCEDURE: HEAD WO INDICATIONS: headache, AMS TECHNIQUE: Noncontrast 4.5 mm thick angled axial sections acquired from the foramen magnum to the vertex. For r adiation dose reduction, the following was used: automated exposure control, adjustment of mA and/or kV according to patient size. COMPARISON: 08/03/2020. FINDINGS: Image quality: Excellent. CSF spaces: Basal cisterns are patent. No extra-axial fluid collections. Ventricles are normal in size and shape. Brain: No midline shift. No intracranial masses or hemorrhage. Lew-white matter interface is norm al. There is diffuse cortical volume loss with associated ex vacuo dilatation of the bilateral ventr icles. No acute intracranial hemorrhage or evidence of transcortical infarction. Scattered bilatera l periventricular white matter hypoattenuation likely sequela from chronic small vessel ischemic dise ase. Atherosclerotic calcifications within the intracranial segments of the bilateral internal caroti d arteries are noted. Skull and face: Calvarium and visualized facial bones are intact, without suspicious lesions. Sinuses: Visualized sinuses and mastoids are clear. IMPRESSION: CT head without acute intracranial abnormalities. No acute calvarial fractures. [place] tration of age-related senescent changes and sequela of chronic small vessel ischemic disease. No significant discrepancy with initial interpretation by overnight radiologist. Reviewed by: Fazal Kamara MD on 01/17/2022 7:31 AM PST Approved by: Fazal Kamara MD on 01/17/2022 7:31 AM PST Station ID: [id number]
== END 2022-01-17 04:33 | disposition home or self-care (01) ==
LOC: EDUNIT# → ED 01:33 → SUPCPDRO 01:33 → ED 04:33
DX: G43.909 Migraine, unspecified, not intractable, without status migrainosus (principal)
CPT/HCPCS: 36415; 70450; 80053; 83690; 85025; 96374; 99284; A9270; G0480; 80320

== ENCOUNTER 2022-02-16 19:10 | Emergency (ER) | payer MEDICARE, OTHER ==
--- NOTE | 2022-02-16 20:33 | ED Physician Documentation ---
History of Present Illness - Stated complaint Stated Complaint: RIGHT SIDE HEAD AND NECK PX - Chief complaint Chief Complaint: Ext Problem - Additonal information Additional information: 76-year-old female comes to the emergency department for evaluation of a right- sided headache and right-sided temporal pain. She does report a history of migraines. States they are usually behind the right eye and she occasionally has temporal pain but this is different than her migraine pattern. She has had no fevers or vomiting but states she feels generally unwell. She was seen at her primary care office today and advised to come to the ER for an MRI. Patient reports that today she has had a sharp pain that starts at the top of her occiput and radiates down towards the right temporal. This is new for her and distinctly different than her previous migraines. Today patient has no slurred speech, facial droop or focal weakness. Patient was seen in this emergency department on 17 January when she was found by her daughter to have altered mental status and slurred speech. CT scan without contrast at that time was unremarkable. The patient is quite tearful and frustrated. Review of Systems Constitutional: denies: Fever, Chills Eyes: denies: Loss of vision Ears: reports: Reviewed and negative Nose: reports: Reviewed and negative Throat: reports: Reviewed and negative Cardiac: reports: Reviewed and negative Respiratory: reports: Reviewed and negative GI: reports: Nausea : denies: Dysuria, Frequency, Hesitancy Skin: denies: Rash, Lesions Neurologic: reports: Headache PD PAST MEDICAL HISTORY - Past Medical History Past Medical History: Yes Cardiovascular: Hypertension, High cholesterol Respiratory: Asthma, Sleep apnea Neuro: Migraines Endocrine/Autoimmune: HyPOthyroidism GI: Colon polyps : Chronic bladder infection HEENT: Chronic sinusitis, Other Psych: Depression Musculoskeletal: None - Past Surgical History Past Surgical History: Yes General: Colonoscopy /[employer]: Hysterectomy, Other - Present Medications Home Medications: Ambulatory Orders Medication Instructions Recorded Confirmed Buspirone HCl 15 mg PO BID 08/13/14 01/17/22 Atorvastatin [Lipitor] 20 mg PO DAILY 08/31/18 01/17/22 Levothyroxine Sodium [Synthroid] 88 mcg PO DAILY 08/31/18 01/17/22 lisinopriL [Lisinopril] 2.5 mg PO DAILY 08/31/18 01/17/22 Albuterol Sulfate [Proair Hfa 1 - 2 puffs INH Q4H PRN 01/05/22 01/17/22 Inhaler] Fluticasone [Flonase] 1 sprays NICHOL BID PRN 01/05/22 01/17/22 Fluticasone/Salmeterol [Advair 1 each IH BID 01/05/22 01/17/22 100-50 Diskus] Ipratropium/Albuterol [Duoneb] 3 ml INH Q4H PRN 01/05/22 01/17/22 Olopatadine HCl [Pataday] 1 ml EACHEYE DAILY 01/05/22 01/17/22 Venlafaxine ER [Effexor ER] 75 mg PO DAILY 01/05/22 01/17/22 Butalb/Acetaminophen/Caffeine 1 - 2 each PO Q6HR PRN #14 cap 01/17/22 [Fioricet 50-300-40 mg Capsule] Ondansetron Odt [Zofran Odt] 4 mg PO Q6HR PRN 01/17/22 01/17/22 Ondansetron Odt [Zofran] 4 mg TL Q6H PRN #10 tablet 01/17/22 clonazePAM [Clonazepam] 0.5 mg PO BID 01/17/22 01/17/22 - Allergies Allergies/Adverse Reactions: Allergies Allergy/AdvReac Type Severity Reaction Status Date / Time codeine Allergy Hallucinati Verified 02/16/22 19:32 ons cocaine AdvReac jerking Verified 02/16/22 19:32 motions - Social History Does the pt smoke?: No Smoking Status: Never smoker Does the pt drink ETOH?: No Does the pt have substance abuse?: No - Immunizations Immunizations are current?: Yes - POLST Patient has POLST: No PD ED PE EXPANDED - General General: Alert, No acute distress - HEENT HEENT: PERRL, EOMI, Other (Right temporal tenderness to palpation) - Neck Neck: Supple w/out meningeal sx. No: JVD present, Adenopathy - Cardiac Cardiac: Regular Rate, Radial strong equal, Pedal strong equal, Cap refill < 2 sec - Respiratory Respiratory: Clear to ausultation daniella. No: Distress, Labored - Abdomen Abdomen: Normal Bowel sounds. No: Tender to palpation - Derm Derm: Normal color, Warm and dry - Extremities Extremities: Normal. No: Deformity, Tenderness - Neuro Neuro: Alert and Oriented X 3, CNII-XII intact, Cerebellar nl, Normal gait, Normal finger nose, Normal speech - GCS Eye Opening: Spontaneous Motor: Obeys Commands Verbal: Oriented Total: 15 Results - Vitals Vitals: Vital Signs - 24 hr 02/16/22 02/16/22 02/16/22 19:22 21:31 23:00 Temperature 36.4 C L Heart Rate 110 H 83 79 Respiratory 18 16 17 Rate Blood Pressure 176/80 H 158/74 H 149/81 H O2 Saturation 96 99 99 Oxygen O2 Source Room air - Labs Labs: Laboratory Tests 02/16/22 02/16/22 02/16/22 20:37 20:37 20:37 WBC 6.7 RBC 4.85 Hgb 13.6 Hct 42.4 MCV 87.4 MCH 28.0 MCHC 32.1 RDW 14.1 Plt Count 303 MPV 10.0 Neut # (Auto) 3.9 Lymph # (Auto) 1.8 [place] # (Auto) 0.6 Eos # (Auto) 0.4 Baso # (Auto) 0.0 Absolute Nucleated RBC 0.00 Nucleated RBC % 0.0 ESR 27 Sodium 138 Potassium 3.7 Chloride 101 Carbon Dioxide 26 Anion Gap 11.0 BUN 21 H Creatinine 0.7 Estimated GFR (MDRD) 81 L Glucose 110 H Calcium 9.7 Total Bilirubin 0.4 AST 26 ALT 31 Alkaline Phosphatase 92 C-Reactive Protein 1.0 Total Protein 7.4 Albumin 4.0 Globulin 3.4 Albumin/Globulin Ratio 1.2 Lipase 65 H PD MEDICAL DECISION MAKING - ED course Complexity details: reviewed results, re-evaluated patient, considered differential, d/w patient ED course: 76-year-old male presents emergency department for evaluation of acute headache that begins at the top of her head and radiates to her right temporal area. She does have a longstanding history of migraines but feels that this is a distinctly different etiology. In addition to this the patient was seen about 1 month ago in this emergency department for altered mental status slurred speech. At that time work-up was negative including a noncontrast CT of the head. Patient was at her primary care office today and she was advised to come to the ED for an MRI. Unfortunately we do not have MRI imaging available at this time. The patient presents well-appearing with no focal neuro deficits, slurred speech ataxia or cerebellar signs. She did have tenderness with palpation of the right temporal area. I did obtain screening labs that showed no leukocytosis. Her sedimentation rate and CRP were not elevated. I did give her Compazine and Benadryl with IV fluids with good resolution of the headache Given lack of fevers leukocytosis normal sedimentation rate and CRP I have very little suspicion for infectious etiology or a temporal arteritis. 2220 patient is signed out to my nighttime colleague Dr. Espinoza to follow-up on the CT angio of the head. If negative she is stable for discharge home. Would recommend MRI as an outpatient but clinically patient does not appear to have any focal findings suggestive of a stroke. Departure - Departure Clinical Impression: Headache Qualifiers: Headache type: unspecified Headache chronicity pattern: acute headache Intractability: not intractable Qualified Code(s): R51.9 - Headache, unspecified Condition: Stable Record reviewed to determine appropriate education?: Yes Comments: Ketty was seen today in the emergency department for evaluation of a right-sided headache that began at the top of the head and radiated to the right temporal area. You did not have any changes in your speech, mentation or motor signs that made us suspicious for a stroke. Your vital signs are normal without fever. Given the location of the headache we did do screening labs. This included blood count, blood chemistry and to labs called a sedimentation rate and a CRP. These were all essentially normal. The fact that the sed rate and the CRP were normal make a condition like temporal arteritis very unlikely. The CT angio of your head did not reveal any new findings but given your age and the fact that your headaches are changing in quality I do recommend an outpatient MRI. Please discuss this with your primary care provider who can order it. If you have sudden severe headache, slurred speech droopy face or feel that your symptoms are worsening then please do not hesitate to return immediately to the ER.
[2022-02-16] MEDS ORDERED: SODIUM CHLORIDE 0.9% 1,000 ML IV STA (20:40)
[2022-02-16] MEDS ORDERED: PROCHLORPERAZINE 10 MG/2 ML VIAL IVP STA (20:40)
[2022-02-16 20:45] LABS: BASOPHILS % (AUTO) 0.4 %; EOSINOPHILS # (AUTO) 0.4 10^3/uL (0.0-0.7); EOSINOPHILS % (AUTO) 5.5 %; HCT - HEMATOCRIT 42.4 % (37.0-47.0); HGB - HEMOGLOBIN 13.6 g/dL (12.0-16.0); LYMPHOCYTES # (AUTO) 1.8 10^3/uL (1.5-3.5); LYMPHOCYTES % (AUTO) 26.5 %; MEAN CORPUSCULAR HGB CONC 32.1 g/dL (32.0-36.0); MEAN CORPUSCULAR VOLUME 87.4 fL (81.0-99.0); MONOCYTES # (AUTO) 0.6 10^3/uL (0.0-1.0); MONOCYTES % (AUTO) 9.6 %; NEUTROPHILS # (AUTO) 3.9 10^3/uL (1.5-6.6); NEUTROPHILS % (AUTO) 57.9 %; PLT - PLATELET COUNT 303 10^3/uL (130-450); RED BLOOD COUNT 4.85 10^6/uL (4.20-5.40); RED CELL DISTRIBUTION WIDTH 14.1 % (12.0-15.0); WHITE BLOOD COUNT 6.7 x10^3/uL (4.8-10.8)
[2022-02-16 21:02] LABS: ALBUMIN/GLOBULIN RATIO 1.2 (1.0-2.2); BILIRUBIN,TOTAL 0.4 mg/dL (0.2-1.0); CALCIUM 9.7 mg/dL (8.5-10.3); CREATININE 0.7 mg/dL (0.4-1.0); POTASSIUM 3.7 mmol/L (3.5-5.0); TOTAL PROTEIN 7.4 g/dL (6.7-8.2)
[2022-02-16] MEDS ORDERED: IOVERSOL 320 100 ML VIAL IVP ONE ×2 (21:11→21:22)
--- NOTE | 2022-02-16 23:14 | CT Report ---
PROCEDURE: ANGIO HEAD W/WO INDICATIONS: right sided headache and temporal pain CONTRAST: IV CONTRAST: Optiray 320 ml: 80 PO CONTRAST: *NO PO CONTRAST TECHNIQUE: Precontrast 4.5 mm thick angled axial sections acquired from the foramen magnum to the vertex. Afte r the administration of intravenous contrast, 1 mm thick sections acquired through the [place] of [place] is. Postcontrast 4.5 mm thick sections then re-acquired from the foramen magnum to the vertex. 3-di mensional jwootlz-jyukjqkqe-rfbbaqrfgu (MIP) and/or volume rendering reformats were acquired of the c entral intracranial vasculature. For radiation dose reduction, the following was used: automated ex posure control, adjustment of mA and/or kV according to patient size. COMPARISON: CT head 01/17/2022, MR brain 10/30/2021. FINDINGS: Image quality: Excellent. CSF spaces: There is mild cerebral volume loss with prominence of the ventricles and sulci. Basal ci sterns are patent. No extra-axial fluid collections. Brain: No intracranial hemorrhage or new mass effect. Lew-white matter interface is preserved. Ther e are subcortical and periventricular white matter hypodensities consistent with mild chronic small v essel ischemic changes. There is a hypervascular enhancing extra-axial mass inferiorly between the fr ontal lobes measuring up to 1.3 cm in transverse dimension by 1.1 cm in craniocaudal dimension by 1.2 cm in anterior posterior dimension which appears similar to the prior MRI study and likely represent s a meningioma. Skull and face: Calvarium and facial bones appear intact, without suspicious lesions. Sinuses: Visualized sinuses and mastoids are clear. CTA head: Anterior circulation: Intracranial internal carotid arteries are patent bilaterally. There is mild calcification along the cavernous segments of the internal carotid arteries bilaterally with associat ed minimal multifocal narrowing. The paired anterior cerebral arteries are patent bilaterally. The m iddle cerebral arteries are also patent bilaterally. The anterior communicating artery is patent. N o high-grade stenosis, occlusion, or discrete filling defects. No cerebral aneurysm identified. Posterior circulation: Visualized portions of the vertebral arteries appear patent and join to form a patent basilar artery. The posterior cerebral arteries are patent bilaterally. No high-grade steno sis, occlusion, or discrete filling defects. No cerebral aneurysm identified. IMPRESSION: 1. No definite acute intracranial abnormality. 2. No high-grade stenosis or occlusion of the central intracranial arteries. 3. Extra-axial hypervascular enhancing mass inferior to the frontal lobes redemonstrated likely repre senting a meningioma. Findings are similar in appearance compared to the prior MRI. Reviewed by: Hemanth Hendricks MD on 02/16/2022 11:13 PM PDT Approved by: Hemanth Hendricks MD on 02/16/2022 11:13 PM PDT Station ID: [id number]
[2022-02-16] MEDS ORDERED: valACYclovir 500 MG TABLET PO STA (23:59)
--- NOTE | 2022-02-16 23:59 | ED Physician Documentation ---
ED Addendum - Addendum Addendum: 02/16/22 23:56 Impression: 1. No definite acute intracranial abnormality. 2. No high-grade stenosis or occlusion of the central intracranial arteries. 3. Extra axial hypervascular enhancing mass inferior to the frontal lobes redemonstrated likely representing a meningioma. Findings are similar in appearance to compared to prior MRI. 76-year-old Ketty Medina has a history of migraine headache and she has come to the emergency department tonight with a temporal headache that she describes as a periodic shocklike sensation from the top of her scalp down to her gnosticism. She has some soreness to the area as well. She does not feel like this is a migraine headache. She was evaluated by Lauren Gomez in the emergency department and additional imaging was obtained to rule out a intracranial abnormality. This imaging is resulted above and does not demonstrate anything new or different. In addition she obtained blood work to rule out temporal arteritis and this was normal as well. I reviewed the patient's history again I examined her scalp. She has no areas of vesiculation or rash but I strongly suspect by the history that this is shingles. I discussed with this with the patient and we are providing empiric therapy with Valacylovir. 02/17/22 07:58 Impression: shingles Disposition: home with valacylcovir.
[2022-02-17 00:15] VITALS: BP 151/84
== END 2022-02-17 00:17 | disposition home or self-care (01) ==
LOC: ED 19:10
DX: B02.9 Zoster without complications (principal); R51.9 Headache, unspecified; I10 Essential (primary) hypertension
CPT/HCPCS: 36415; 70496; 80053; 83690; 85025; 85651; 86140; 96374; 99284; A9270; Q9967

== ENCOUNTER 2022-02-18 08:54 | Outpatient (CLI) | payer MEDICARE, OTHER ==
--- NOTE | 2022-02-18 15:57 | Ultrasound Report ---
PROCEDURE: Carotid Doppler Complete INDICATIONS: LIGHT HEADEDNESS, HEADACHE TECHNIQUE: Color and pulse Doppler interrogation was performed of both carotid systems, with image documentation and velocity measurements. COMPARISON: CTA head 02/16/2022. FINDINGS: Right side: Brachial blood pressure: 114/59 mm Hg. Common carotid artery peak systolic velocity: 90 cm/sec. Internal carotid artery peak systolic velocity: 108 cm/sec. Internal carotid artery end diastolic velocity: 31 cm/sec. External carotid artery peak systolic velocity: 142 cm/sec. ICA/CCA peak systolic ratio: 1.1 . Lew scale imaging description: Mild plaque at the bifurcation Percent internal carotid artery stenosis: Less than 50% . Vertebral artery: Flow direction is antegrade. Left side: Brachial blood pressure: 101/47 mm Hg. Common carotid artery peak systolic velocity: 118 cm/sec. Internal carotid artery peak systolic velocity: 118 cm/sec. Internal carotid artery end diastolic velocity: 32 cm/sec. External carotid artery peak systolic velocity: 99 cm/sec. ICA/CCA peak systolic ratio: 1.0 . Lew scale imaging description: Mild plaque at the bifurcation. Percent internal carotid artery stenosis: Less than 50% . Vertebral artery: Flow direction is antegrade. IMPRESSION: Less than 50% stenosis of the internal carotid arteries bilaterally. The estimate of stenosis included in the report of the imaging study was calculated using the NASCET method Reviewed by: Cleopatra Bae MD on 02/18/2022 3:56 PM PDT Approved by: Cleopatra Bae MD on 02/18/2022 3:56 PM PDT Station ID: [id number]
== END 2022-02-18 08:55 | disposition home or self-care (01) ==
LOC: DI 08:54
PROVIDERS: ATTEND Physician Assistant
DX: I65.23 Occlusion and stenosis of bilateral carotid arteries (principal)
CPT/HCPCS: 93880

== ENCOUNTER 2022-02-26 11:28 | Outpatient (CLI) | payer MEDICARE, OTHER ==
[2022-02-26] MEDS ORDERED: GADOBUTROL 7.5 MMOL/7.5 ML VIAL ONE (11:31)
[2022-02-26] MEDS ORDERED: GADOBUTROL 7.5 MMOL/7.5 ML VIAL IVP ONE (14:05)
--- NOTE | 2022-02-26 17:17 | MRI Report ---
PROCEDURE: MRI brain with and without contrast INDICATIONS: MIXED HEADACHE CONTRAST: IV CONTRAST: Gadavist ml: 6.8 TECHNIQUE: Noncontrast axial T1 spin echo, axial T2 fast spin echo, sagittal and axial FLAIR, coronal T2 fast sp in echo, axial gradient echo, axial diffusion and ADC through the brain. After the administration of contrast, axial and coronal T1 spin echo with fat saturation through the brain. COMPARISON: 10/30/2021, 02/16/2022 FINDINGS: Image quality: Excellent. CSF spaces: Basal cisterns are patent. No extra-axial fluid collections. Ventricles are normal in size and shape. Brain: Centered on the cosme lucía in the interhemispheric fissure, there is an avidly enhancing ext ra-axial mass lesion measuring 12 mm, stable from the prior exam. No associated cerebral edema or lynsey nge from the prior exam No midline shift. No intracranial bleeds or masses. There is cerebral volu me loss for age. There is periventricular white matter chronic small vessel ischemic change. The br ainstem appears normal. Diffusion-weighted images demonstrate no acute ischemic insults. No chronic ischemic insults. Normal intravascular flow voids are present. Skull and face: Calvarial marrow is normal in signal. Orbits appear normal. Sinuses: Sinuses and mastoids appear clear. IMPRESSION: Stable midline frontal meningioma. Atrophy and chronic change without acute hemorrhage or infarct. Reviewed by: Brent Velazquez MD on 02/26/2022 4:15 PM ROBERT Approved by: Brent Velazquez MD on 02/26/2022 4:15 PM AKPABLO Station ID: [id number]
== END 2022-02-26 11:29 | disposition home or self-care (01) ==
LOC: DI 11:28
PROVIDERS: ATTEND Physician Assistant
DX: G44.89 Other headache syndrome (principal); D32.0 Benign neoplasm of cerebral meninges; G31.89 Other specified degenerative diseases of nervous system; I67.82 Cerebral ischemia
CPT/HCPCS: 70553; A9585

== ENCOUNTER 2022-05-29 08:00 | Outpatient (CLI) | payer MEDICARE, OTHER ==
[2022-05-29 18:23] LABS: BILIRUBIN,URINE NEGATIVE (NEGATIVE); GLUCOSE, URINE (UA) 100 mg/dL (NEGATIVE); KETONES,URINE (UA) NEGATIVE (NEGATIVE); LEUKOCYTE ESTERASE, URINE MODERATE (NEGATIVE); NITRITE,URINE POSITIVE (NEGATIVE); OCCULT BLOOD,URINE LARGE (NEGATIVE); PROTEIN,URINE 100 mg/dL (NEGATIVE); UROBILINOGEN,URINE 4 E.U./dL (NORMAL)
[2022-05-29 18:36] LABS: CLARITY,URINE HAZY (CLEAR)
[2022-05-29 18:37] LABS: AMORPHOUS SEDIMENT,UR Moderate /LPF; BACTERIA,URINE Few /HPF (None Seen); RBC,URINE TNTC /HPF (0-5); SQUAMOUS EPITHELIAL CELL,UR RARE Squamous (<= Few); WBC,URINE >25 /HPF (0-5)
== END 2022-05-29 23:59 | disposition home or self-care (01) ==
LOC: LAB.R 08:00
PROVIDERS: ATTEND Physician Assistant
DX: R30.9 Painful micturition, unspecified (principal)
CPT/HCPCS: 81001; 87086

== ENCOUNTER 2022-10-20 12:55 | Outpatient (CLI) | payer MEDICARE, OTHER ==
--- NOTE | 2022-10-21 08:38 | XRAY Report ---
PROCEDURE: Finger(s) LT INDICATIONS: L THUMB PX TECHNIQUE: AP hand, 2 views of the thumb acquired. COMPARISON: None FINDINGS: Bones: Polyarticular degenerative changes present, including Severe first CMC and STT joint degenerat mavis changes. Moderate degenerative changes also present at the first MCP joint and IP joint. IMPRESSION: No acute fracture visualized. Polyarticular degenerative changes, severe at the base of the thumb. Reviewed by: Fletcher Nunez MD on 10/21/2022 8:37 AM PST Approved by: Fletcher Nunez MD on 10/21/2022 8:37 AM PST Station ID: [id number]
== END 2022-10-20 23:59 | disposition home or self-care (01) ==
LOC: DI.N 12:55
PROVIDERS: ATTEND Nurse Practitioner
DX: M18.12 Unilateral primary osteoarthritis of first carpometacarpal joint, left hand (principal); M19.042 Primary osteoarthritis, left hand

== ENCOUNTER 2022-10-26 08:00 | Outpatient (CLI) | payer MEDICARE, OTHER ==
--- NOTE | 2022-10-26 10:41 | XRAY Report ---
PROCEDURE: Finger(s) LT INDICATIONS: LEFT THUMB PAIN/INJURY TECHNIQUE: AP hand, 2 views of the first finger(s) acquired. COMPARISON: 10/20/2022 plain films FINDINGS: Bones: No fractures or dislocations. No suspicious bony lesions. Multifocal joint space narrowing and periarticular osteophyte formation at the scaphotrapezial, first, metacarpal joint, as well as th e interphalangeal joints of the digits, indicating osteoarthritis. Soft tissues: No suspicious soft tissue calcifications. IMPRESSION: Multifocal osteoarthritis. No acute fracture. No osseous lesion. If symptoms and/or clinical suspicio n for pathology continue, further assessment with repeat plain films, or advanced imaging (e.g., CT, MRI, or bone scan) is recommended for further assessment. Reviewed by: Rosemarie Walters MD on 10/26/2022 10:40 AM PST Approved by: Rosemarie Walters MD on 10/26/2022 10:40 AM PST Station ID: [id number]
== END 2022-10-26 23:59 | disposition home or self-care (01) ==
LOC: DI.WOS 08:00
PROVIDERS: ATTEND Orthopaedic Surgery
DX: M19.042 Primary osteoarthritis, left hand (principal)

== ENCOUNTER 2023-06-29 09:50 | Outpatient (CLI) | payer MEDICARE, OTHER ==
[2023-06-29 12:13] LABS: BASOPHILS % (AUTO) 0.7 %; EOSINOPHILS # (AUTO) 0.3 10^3/uL (0.0-0.7); EOSINOPHILS % (AUTO) 5.6 %; HGB - HEMOGLOBIN 13.4 g/dL (12.0-16.0); LYMPHOCYTES % (AUTO) 33.3 %; MEAN CORPUSCULAR HEMOGLOBIN 27.2 pg (27.0-31.0); MEAN CORPUSCULAR HGB CONC 31.2 g/dL (32.0-36.0); MEAN CORPUSCULAR VOLUME 87.4 fL (81.0-99.0); MEAN PLATELET VOLUME 11.1 fL (7.9-10.8); MONOCYTES # (AUTO) 0.6 10^3/uL (0.0-1.0); NEUTROPHILS % (AUTO) 50.2 %; RED BLOOD COUNT 4.92 10^6/uL (4.20-5.40); RED CELL DISTRIBUTION WIDTH 14.3 % (12.0-15.0); WHITE BLOOD COUNT 5.9 x10^3/uL (4.8-10.8)
[2023-06-29 12:14] LABS: SLIDE REVIEW? Indicated
[2023-06-29 12:40] LABS: PLATELET MORPHOLOGY PLATELET CLUMPING (NORMAL)
[2023-06-29 12:44] LABS: ALBUMIN 4.1 g/dL (3.2-5.5); ALBUMIN/GLOBULIN RATIO 1.2 (1.0-2.2); ALKALINE PHOSPHATASE 110 IU/L (42-121); ALT ALANINE AMINOTRANSFERASE 21 IU/L (10-60); AST ASPARTATE AMINOTRANSFERASE 21 IU/L (10-42); BILIRUBIN,TOTAL 0.4 mg/dL (0.2-1.0); BUN - BLOOD UREA NITROGEN 25 mg/dL (6-20); CALCIUM 9.7 mg/dL (8.5-10.3); CARBON DIOXIDE - CO2 29 mmol/L (21-32); CHLORIDE 103 mmol/L (101-111); CHOL/HDL RATIO 5.6 (<4.4); CHOLESTEROL 236 mg/dL; CREATININE 1.1 mg/dL (0.6-1.3); GFR - MDRD 48 (>89); GLUCOSE 78 mg/dL (74-104); HDL CHOLESTEROL 42 mg/dL; LDL CHOLESTEROL,CALCULATED 116 mg/dL; LDL/HDL RATIO 2.8 (<4.4); POTASSIUM 4.4 mmol/L (3.5-4.5); SODIUM 136 mmol/L (135-145); TOTAL PROTEIN 7.5 g/dL (6.4-8.9); TRIGLYCERIDES 389 mg/dL (48-352); VLDL CHOLESTEROL 78 mg/dL
== END 2023-06-29 09:51 | disposition home or self-care (01) ==
LOC: LAB.N 09:50
PROVIDERS: ATTEND Physician Assistant
DX: I10 Essential (primary) hypertension (principal); E78.5 Hyperlipidemia, unspecified; E03.9 Hypothyroidism, unspecified
CPT/HCPCS: 36415; 80053; 80061; 83721; 84439; 84443; 85025

== ENCOUNTER 2023-07-05 15:00 | Outpatient (CLI) | payer MEDICARE, OTHER | END 2023-07-05 15:15 | disposition home or self-care (01) | LOC: LAB.N 15:00 | PROVIDERS: ATTEND Family Medicine | DX: R10.9 Unspecified abdominal pain (principal); R30.0 Dysuria | CPT/HCPCS: 36415; 80048; 85025; 87086; 87181 ==

== ENCOUNTER 2023-09-05 13:22 | Outpatient (CLI) | payer MEDICARE, OTHER ==
--- NOTE | 2023-09-05 19:06 | Ultrasound Report ---
PROCEDURE: Retroperitoneal INDICATIONS: RIGHT FLANK PAIN, BILATERAL RENAL CYST TECHNIQUE: Real-time scanning was performed of the retroperitoneal organs, with image documentation. COMPARISON: CT abdomen pelvis 08/02/2021. FINDINGS: Kidneys: Kidneys are normal in size. Right kidney measures 8.8 cm long; left kidney measures 11 cm long. Right renal cortical thickness is 0.4 cm; left renal cortical thickness is 0.8 cm. Hydronephro sis. No kidney stones identified. Right kidney superior pole anechoic cyst measuring at 2.9 cm. Left kidney inferior pole anechoic cyst measuring 1.1 cm. The small additional cysts in the kidneys seen on prior CT are not identified. Bladder: Pre-void bladder volume is 79 mL. Post-void residual is 70 mL. Pre-void images demonstrat e no intraluminal masses or stones. On pre-void images, both ureteral jets are noted with color Dopp ler interrogation. (Of note, ureteral jets may not be detectable in up to 25% of cases due to insuff icient differences in specific gravity between ureteral and bladder urine). Miscellaneous: No free abdominal fluid. IMPRESSION: 1. No hydronephrosis. 2. Right kidney is asymmetrically smaller than the left, similar. 3. Small anechoic renal cysts are seen. The additional renal cyst seen on prior CT are not appreciate d likely due to their small size. If clinically indicated consider CT KUB. Reviewed by: Konrad Gutierrez MD on 09/05/2023 7:05 PM PDT Approved by: Konrad Gutierrez MD on 09/05/2023 7:05 PM PDT Station ID: [id number]
== END 2023-09-05 13:23 | disposition home or self-care (01) ==
LOC: DI 13:22
PROVIDERS: ATTEND Family Medicine
DX: N28.1 Cyst of kidney, acquired (principal); R10.9 Unspecified abdominal pain; I10 Essential (primary) hypertension

== ENCOUNTER 2023-10-07 14:55 | Outpatient (CLI) | payer MEDICARE, OTHER ==
--- NOTE | 2023-10-07 15:51 | DEXA Report ---
PROCEDURE: Dexa Spine and/or Hip INDICATIONS: POST MENOPAUSAL TECHNIQUE: Dual energy x-ray absorptiometry (DXA) was performed on a [employer] System. Regions measur ed are the AP Spine, femoral neck, and if needed forearm. COMPARISON: None. FINDINGS: Lumbar Spine: Bone Mineral Density 1.084 g/cm/cm,T score -0.8. Left Femoral Neck: Bone Mineral Density 0.775 g/cm/cm, T score -1.9. Left Hip: Bone Mineral Density 0.816 g/cm/cm,T score -1.5. (T score greater or equal to -1.0: NORMAL) (T score from -1.1 to -2.4: OSTEOPENIA) (T score less than or equal to -2.5 to: OSTEOPOROSIS) Impression: By WHO criteria, this patient has low bone density (osteopenia). Patients with diagnosis of osteoporosis or osteopenia should have regular bone mineral density assess ment. For those eligible for Medicare, routine testing is allowed once every 2 years. Testing frequ ency can be increased for patients who have rapidly progressing disease or for those who are receivin g medical therapy to restore bone mass. Reviewed by: Iron Bermudez MD on 10/07/2023 3:50 PM PST Approved by: Iron Bermudez MD on 10/07/2023 3:50 PM PST Station ID: [id number]
== END 2023-10-07 14:56 | disposition home or self-care (01) ==
LOC: DI 14:55
PROVIDERS: ATTEND Physician Assistant
DX: M85.89 Other specified disorders of bone density and structure, multiple sites (principal); Z78.0 Asymptomatic menopausal state

== ENCOUNTER 2024-04-26 13:52 | Outpatient (CLI) | payer MEDICARE, OTHER ==
[~2024-04-26 13:52] MED LIST: GADOTERATE MEGLUMINE 7.5 MMOL/15 ML VIAL ONE
[2024-04-26] MEDS: GADOTERATE MEGLUMINE 7.5 MMOL/15 ML VIAL IVP ONE (17:31)
--- NOTE | 2024-04-26 19:41 | MRI Report ---
PROCEDURE: MRI brain with and without contrast INDICATIONS: 79-year-old female with meningioma. Surveillance study. TECHNIQUE: Multiplanar multisequential MR images of the brain were obtained before and after intrave nous contrast administration. COMPARISON: MRI brain 02/26/2022 FINDINGS: CSF spaces: Basal cisterns are patent. No extra-axial fluid collections. Ventricles are normal in size and shape. Brain: Homogeneously enhancing dural based extra-axial mass lesion arising from the piriform plate is slightly larger than the prior exam now measuring 13 x 18 mm, previously 11 x 15 mm when measured in the same projection. Lesion now shows definite extension into the left olfactory groove. Mass extend s across the midline, although is centered on the left. No associated cerebral edema or restricted di ffusion. Skull and face: Calvarial marrow is normal in signal. Orbits appear normal. Sinuses: Sinuses and mastoids appear clear. 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 No edema or restricted diffusion. Stable generalized atrophy and chronic ischemic change Reviewed by: Brent Velazquez MD on 04/26/2024 6:40 PM AKDT Approved by: Brent Velazquez MD on 04/26/2024 6:40 PM AKDT Station ID: [id number]
== END 2024-04-26 13:53 | disposition home or self-care (01) ==
LOC: DI 13:52
PROVIDERS: ATTEND Physician Assistant
DX: D32.9 Benign neoplasm of meninges, unspecified (principal)

== ENCOUNTER 2024-04-27 10:09 | Outpatient (CLI) | payer MEDICARE, OTHER ==
[2024-04-27 13:21] LABS: THYROID STIMULATING HORMONE 2.09 uIU/mL (0.34-5.60)
[2024-04-27 13:30] LABS: BUN - BLOOD UREA NITROGEN 42 mg/dL (6-20); CALCIUM 9.3 mg/dL (8.5-10.3); CARBON DIOXIDE - CO2 25 mmol/L (21-32); CHLORIDE 104 mmol/L (101-111); CHOL/HDL RATIO 4.9 (<4.4); CHOLESTEROL 193 mg/dL; CREATININE 1.8 mg/dL (0.6-1.3); GFR - MDRD 27 (>89); GLUCOSE 104 mg/dL (74-104); HDL CHOLESTEROL 39 mg/dL; LDL CHOLESTEROL,CALCULATED 112 mg/dL; LDL/HDL RATIO 2.9 (<4.4); POTASSIUM 4.9 mmol/L (3.5-4.5); SODIUM 136 mmol/L (135-145); TRIGLYCERIDES 211 mg/dL (48-352); VLDL CHOLESTEROL 42 mg/dL
== END 2024-04-27 10:10 | disposition home or self-care (01) ==
LOC: LAB.N 10:09
PROVIDERS: ATTEND Family Medicine
DX: E03.9 Hypothyroidism, unspecified (principal); I10 Essential (primary) hypertension
CPT/HCPCS: 36415; 80048; 80061; 83721; 84443

== ENCOUNTER 2024-06-20 19:05 | Outpatient (CLI) | payer MEDICARE, OTHER ==
--- NOTE | 2024-06-21 22:38 | Ultrasound Report ---
PROCEDURE: Renal (Retroperitoneal) INDICATIONS: ACUTE KIDNEY FAILURE TECHNIQUE: Real-time scanning was performed of the retroperitoneal organs, with image documentation. COMPARISON: Retroperitoneal ultrasound 09/05/2023 FINDINGS: Kidneys: Mild echogenic appearance of the kidneys. Right kidney measures 8 point cm long; left kidney measures 10.8 cm long. Right renal cortical thickness is 0.7 cm; left renal cortical thickness is 1 .1 cm. No solid masses, hydronephrosis, or nephrolithiasis. Bilateral simple cysts, unchanged. Bladder: Pre-void bladder volume is 320 mL. Post-void residual is 10 mL. Pre-void images demonstra te no intraluminal masses or stones. On pre-void images, only the left ureteral jets are noted with color Doppler interrogation. (Of note, ureteral jets may not be detectable in up to 25% of cases due to insufficient differences in specific gravity between ureteral and bladder urine). Miscellaneous: No free abdominal fluid. IMPRESSION: Mild echogenic appearance of the kidneys suggestive of medical renal disease. Reviewed by: Cleopatra Bae MD on 06/21/2024 10:36 PM PDT Approved by: Cleopatra Bae MD on 06/21/2024 10:36 PM PDT Station ID: [id number]
== END 2024-06-20 19:06 | disposition home or self-care (01) ==
LOC: DI 19:05
PROVIDERS: ATTEND Internal Medicine Nephrology
DX: N17.8 Other acute kidney failure (principal); N18.31 Chronic kidney disease, stage 3a